=== PATIENT | female | born 1965 | race Caucasian/White ===

== ENCOUNTER 2017-05-19 10:16 | Emergency (ER) | payer MEDICAID ==
[~2017-05-19] VITALS: Ht 165.1 cm; Wt 74.8 kg
--- OUTSIDE RECORDS SUMMARY | 2017-05-19 10:23 | XMS REPORT ---
Author ALIYAH Galvez [facility] [place] eClinicalWorks Address Unknown Phone Unavailable Care Team Providers Care Dramatic Agent Name Role Phone ALIYAH MILTON CP Unavailable Allergies No Known Allergies Problems Problem Type Condition Code Onset Dates Condition Status Assessment Gastroesophageal reflux disease without esophagitis K21.9 Active Problem Oropharyngeal dysphagia R13.12 Active Problem Anxiety about health F41.8 Active Problem Bug bite, initial encounter W57.XXXA Active Problem Esophageal reflux 530.81 Active Problem DTAP TEST V06.1 Active Problem Mild persistent asthma without complication J45.30 Active Problem Gastroesophageal reflux disease without esophagitis K21.9 Active Medications No Known Medications Procedures Procedure Coding System Code Date VENIPUNCT, ROUTINE* CPT-4 65281 Dec 12, 2015 LAB NOT BILLED BY [facility] CPT-4 NOBLL Dec 12, 2015 Results Name Result Date Reference Range Unit Abnormality Flag CBC ----Lymphs 21 40459728 % ----Neutrophils 69 79136518 % ----Baso (Absolute) 0.1 [id number] 0.0-0.2 x10E3/uL ----Hemoglobin 13.2 87454545 11.1-15.9 g/dL ----Eos (Absolute) 0.1 44623419 0.0-0.4 x10E3/uL ----Hematocrit 40.3 10416057 34.0-46.6 % ----Monocytes(Absolute) 0.4 14761600 0.1-0.9 x10E3/uL ----MCV 83 55915943 79-97 fL ----Lymphs (Absolute) 1.2 10284750 0.7-3.1 x10E3/uL ----MCH 27.2 49516209 26.6-33.0 pg ----Neutrophils (Absolute) 4.1 45404233 1.4-7.0 x10E3/uL ----MCHC 32.8 32991099 31.5-35.7 g/dL ----Immature Granulocytes 1 91031508 % ----Basos 1 01342653 % ----RDW 19.1 38657879 12.3-15.4 % H ----Immature Grans (Abs) 0.0 20151212 0.0-0.1 x10E3/uL ----WBC 6.0 56123201 3.4-10.8 x10E3/uL ----Platelets 233 17759652 150-379 x10E3/uL ----Eos 1 24832679 % ----RBC 4.85 69258456 3.77-5.28 x10E6/uL ----Monocytes 7 95031426 % CMP ----Globulin, Total 2.5 33375656 1.5-4.5 g/dL ----eGFR If Africn Am 113 43946519 >59 mL/min/1.73 ----eGFR If NonAfricn Am 98 35823493 >59 mL/min/1.73 ----Albumin, Serum 4.5 56514521 3.5-5.5 g/dL ----Sodium, Serum 141 56343221 136-144 mmol/L ----Protein, Total, Serum 7.0 89211586 6.0-8.5 g/dL ----BUN/Creatinine Ratio 14 20151212 9-23 ----Calcium, Serum 9.3 09813030 8.7-10.2 mg/dL ----AST (SGOT) 11 20151212 0-40 IU/L ----Glucose, Serum 94 18595233 65-99 mg/dL ----Alkaline Phosphatase, S 74 20151212 39-117 IU/L ----Bilirubin, Total 0.4 20151212 0.0-1.2 mg/dL ----Creatinine, Serum 0.73 20151212 0.57-1.00 mg/dL ----A/G Ratio 1.8 20151212 1.1-2.5 ----BUN 10 20151212 6-24 mg/dL ----Carbon Dioxide, Total 22 20151212 18-29 mmol/L ----ALT (SGPT) 11 20151212 0-32 IU/L ----Potassium, Serum 4.2 20151212 3.5-5.2 mmol/L ----Chloride, Serum 100 20151212 97-106 mmol/L ROUTINE VENIPUNCTURE TSH ----TSH 1.420 20151212 0.450-4.500 uIU/mL Summary Purpose eClinicalWorks Submission
--- OUTSIDE RECORDS SUMMARY | 2017-05-19 10:23 | XMS REPORT ---
Author Author ALIYAH MILTON [facility] Address [address] [place] [address] Care Team Providers Care Cascara Bark Cutter Name Role Phone ALIYAH MILTON Unavailable PROBLEMS Type Condition ICD9-CM Code XYF09-WR Code Onset Dates Condition Status SNOMED Code Problem Mild persistent asthma without complication J45.30 Active 961126712 Problem Cyst of left breast N60.02 Active 49167506278214061 Problem Seasonal allergic rhinitis, unspecified allergic rhinitis trigger J30.2 Active 543918670 Problem Anxiety about health F41.8 Active 757959867 Problem Gastroesophageal reflux disease without esophagitis K21.9 Active 019387319 Problem Bug bite, initial encounter W57.XXXA Active 357737621 Problem Oropharyngeal dysphagia R13.12 Active 54742211 ALLERGIES Substance Reaction Event Type Date Status codiene nausea Drug Allergy Apr, Active SOCIAL HISTORY Never Assessed PLAN OF CARE Activity Details Follow Up prn Reason: VITAL SIGNS Height 66 in 2016-05-01 Weight 169.1 lbs 2016-05-01 Temperature 98.7 degrees Fahrenheit 2016-05-01 Heart Rate 90 bpm 2016-05-01 Respiratory Rate 18 2016-05-01 BMI 27.29 kg/m2 2016-05-01 Blood pressure systolic 110 mmHg 2016-05-01 Blood pressure diastolic 78 mmHg 2016-05-01 MEDICATIONS Medication Instructions Dosage Frequency Start Date End Date Duration Status Cetirizine HCl 10 mg Orally Once a day 1 tablet 24h Active ProAir HFA 108 (90 Base) MCG/ACT Inhalation PRN 2 puffs as needed Jan Active Fluticasone Propionate 50 MCG/ACT Nasally Once a day 1 spray in each nostril 24h Apr, Active Advair Diskus 100-50 MCG/DOSE Inhalation Twice a day 1 puff 12h 14 Jun, 2012 Active Ibuprofen 600 MG TAKE ONE TABLET EVERY 6 HOURS WITH FOOD NEEDED FOR PAIN 6 Active Triamcinolone Acetonide 0.1 % Externally Twice a day 1 application to affected area 12h 18 Apr, 2016 Active RESULTS No Results PROCEDURES Procedure Date Ordered Result Body Site SOLUMEDROL (UP TO 125 MG) May 01, 2016 THER/PROPH/DIAG INJ, SC/IM May 01, 2016 IMMUNIZATIONS Vaccine Route Administration Date Status SOLUMEDROL (UP TO 125 MG) IM Intramuscular May 01, 2016 Administered MEDICAL (GENERAL) HISTORY Type Description Date Medical History asthma Medical History gerd Medical History thyroid disorder goiter-multinodular - normal tsh 2009 Medical History anxiety Medical History grade 1 reflux esophagitis, gastic mass EGD 2014 Medical History helicobacter pylori 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 Guerin Surgical History tubal ligation Hospitalization History child
--- OUTSIDE RECORDS SUMMARY | 2017-05-19 10:24 | XMS REPORT ---
Author Author CAESAR MOLINA [facility] Address [address] [place] [address] Care Team Providers Care Cotton Ginner Helper Name Role Phone CAESAR MOLINA Unavailable PROBLEMS Type Condition ICD9-CM Code OZO25-OA Code Onset Dates Condition Status SNOMED Code Problem Gastroesophageal reflux disease without esophagitis K21.9 Active 095391986 Problem Oropharyngeal dysphagia R13.12 Active 91913353 Problem Anxiety about health F41.8 Active 406514560 Problem Mild persistent asthma without complication J45.30 Active 285634630 Problem Skin-picking disorder F42.4 Active 015826689 Problem Influenza vaccination declined Z28.21 Active 231350511 Problem Seasonal allergic rhinitis, unspecified allergic rhinitis trigger J30.2 Active 813782755 Problem Bug bite, initial encounter W57.XXXA Active 983940623 Problem Atopic dermatitis, unspecified type L20.9 Active 77620362 Problem Cyst of left breast N60.02 Active 33232649848049075 ALLERGIES No Information ENCOUNTERS Encounter Location Date Diagnosis [address] [id number] [id number] Apr, [address] [id number] [address] Apr, Screening cholesterol level Z13.220 ; Thyroid disorder screening Z13.29 ; Gastroesophageal reflux disease without esophagitis K21.9 and Mild persistent asthma without complication J45.[address] [id number][place] [address] Apr, Skin-picking disorder F42.4 and Viral upper respiratory tract infection J06.[address] [id number][place] [address] Feb, Mild persistent asthma without complication J45.30 ; Influenza vaccination declined Z28.21 and Atopic dermatitis, unspecified type L20.[address] [facility] [address] [id number] [place] [id number] 14 Jan, 2017 Encounter for dental examination and cleaning without abnormal findings Z01.[address] [facility] [address] [id number] [place] [id number] 14 Jan, 2017 Dental examination Z01.[address] [facility] [address] [id number] [place] [address] 12 Jan, 2017 Allergic dermatitis L23.[address] [facility] [address] [id number] [place] [address] 11 Jan, [address] [facility] [address] [id number] [place] [id number] Aug, [facility] [address] [id number] [place] [id number] Aug, [facility] [address] [id number], [place] [address] Jul, [facility] [address] [facility] [id number], [place] [address] Jul, [facility] [address] [address] [id number][place] [id number] Jul, [facility] [address] [id number] [id number] Jul, Cyst of left breast N60.[address] [facility] [address] [id number] [place] [id number] Jul, [facility] [address] [address] [id number] [place] [address] Jul, [facility] [address] [address] [id number] [place] [address] June, [facility] [address] [address] [id number] [place] [address] June, Colon cancer screening Z12.11 ; Gynecologic exam normal Z01.419 and Breast cancer screening Z12.[address] [facility] [address] [place] [address] AVE [id number] [address] Apr, Seasonal allergic rhinitis, unspecified allergic rhinitis trigger J30.2 and Gastroesophageal reflux disease without esophagitis K21.9 [facility] [address] [id number] [address] Apr, Seasonal allergic rhinitis, unspecified allergic rhinitis trigger J30.2 and Allergic contact dermatitis, unspecified trigger L23.9 [facility] [address] [id number] [address] Apr, Insect bites, initial encounter W57.XXXA [facility] [address] [id number] [place] [id number] Dec, Gastroesophageal reflux disease without esophagitis K21.9 [facility] [address] [id number] [address] Dec, Bug bite, initial encounter W57.XXXA [facility] [address] [id number] [id number] Oct, Oropharyngeal dysphagia R13.12 [facility] [address] [place] [address] AV [id number] [address] Jul, Plant dermatitis L25.5 and Itching L29.9 [facility] [address] [id number][place] [address] June, Plant allergic contact dermatitis L23.7 and Urticaria L50.9 [facility] [address] [id number], [place] [address] May, Oropharyngeal dysphagia R13.12 and Anxiety about health F41.8 [facility] [address] [place] [address] AV [id number][place] [id number] Mar, 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 [facility] [address] [place] [address] AV [id number] [address] Jan, Mild persistent asthma without complication J45.30 and Gastroesophageal reflux disease without esophagitis K21.9 [facility] [address] [facility] [address] [id number] [address] Jul, Abscess or cellulitis of toe 681.10 [facility] [address] [facility] [id number], [place] [address] 14 May, 2014 [facility] [address] [facility] [id number], [place] [address] May, [facility] [address] [facility] [id number], [place] [address] Mar, [facility] [address] [facility] [id number], [place] [address] Mar, [facility] [address] [id number], [place] [address] Feb, [facility] [address] [id number], [place] [address] Feb, [facility] [address] [facility] [id number], [place] [address] Jan, [facility] [address] [id number], [place] [address] Jan, [facility] [address] [id number], [place] [address] Jan, [facility] [address] [facility] [id number], [place] [address] Jan, [facility] [address] [facility] [id number], [place] [address] Dec, [facility] [address] [facility] [id number], [place] [address] Dec, [facility] [address] [facility] [id number], [place] [address] Nov, [facility] [address] [facility] [id number], [place] [address] Nov, [facility] [place] [facility] [address] [id number] [place] [address] Aug, 2013 [facility] [address] [id number] [place] [address] Aug, [facility] [place] [facility] [address] [id number] [place] [address] Aug, [facility] [address] [id number] [place] [address] Aug, [facility] [place] [facility] [address] [id number] [place] [address] Aug, [facility] [address] [id number] [place] [address] Aug, [facility] [address] [id number] [place] [address] May, [facility] [place] [facility] [address] [id number] [place] [address] May, [facility] [address] [id number] [place] [address] May, [facility] [place] [facility] [address] [id number] [place] [address] May, [facility] [address] [id number] [place] [address] May, [facility] [place] [facility] [address] [id number] [place] [address] May, [facility] [place] [facility] [address] [id number] [place] [address] May, [facility] [place] [facility] [address] [id number] [place] [address] May, [facility] [place] [facility] [address] [id number] [place] [address] May, [facility] [place] [facility] [address] [id number] [place] [address] May, [facility] [address] [id number] [place] [address] May, [facility] [address] [id number] [place] May, [facility] [address] [facility] [id number] [place] Apr, [facility] [address] [id number] [place] [address] Apr, [facility] [address] [id number] [place] [address] Apr, [facility] [address] [id number] [place] [address] Nov, [facility] [address] [facility] [id number] [place] [address] Nov, [facility] [address] [facility] [id number], [place] [address] Nov, [facility] [address] [facility] [id number], [place] [address] Nov, [facility] [address] [facility] [id number], [place] [address] Nov, [facility] [address] [facility] [id number], [place] [address] Nov, [facility] [address] [facility] [id number], [place] [address] Oct, [facility] [address] [facility] [id number], [place] [address] Jul, [facility] [address] [facility] [id number], [place] [address] Jul, [facility] [address] [facility] [id number][place] [address] June, IMMUNIZATIONS No Known Immunizations SOCIAL HISTORY Never Assessed REASON FOR VISIT mammo PLAN OF CARE VITAL SIGNS MEDICATIONS Unknown Medications RESULTS No Results PROCEDURES No Known procedures INSTRUCTIONS MEDICATIONS ADMINISTERED No Known Medications MEDICAL (GENERAL) HISTORY Type Description Date Medical [...]
--- OUTSIDE RECORDS SUMMARY | 2017-05-19 10:24 | XMS REPORT ---
Author Author Yan Nuñez [facility] Address [address] [facility] [address] [place], [place] [address] Care Team Providers Care Solar Installation Helper Name Role Phone Yan Nuñez PCP Unavailable Allergies and Adverse Reactions Name Reaction Notes No known history of drug allergy Plan of Treatment Not available. Medications Active Name Start Date Estimated Completion Date SIG Comments doxycycline hyclate 100 mg oral capsule 09/29/2016 10/09/2016 take 1 capsule ( 100 mg) by oral route every 12 hours for 10 days mupirocin 2 % topical ointment 09/29/2016 apply a small amount to the affected area by topical route 3 times per day Problem List Not available. Vital Signs Date Time BP-Sys(mm[Hg] BP-Xochilt(mm[Hg]) HR(bpm) RR(rpm) Temp WT HT HC BMI BSA BMI Percentile O2 Sat(%) 09/29/2016 7:10:00 PM 126 mmHg 78 mmHg 71 bpm 17 rpm 98.7 F 171.312 lbs 65.5 in 28.07 kg/m2 1.90 m2 98 % Social History Name Description Comments Tobacco Never smoker Alcohol Use - Rare History of Procedures Not available. Results Summary Not available. History Of Immunizations Not available. History of Past Illness Name Date of Onset Comments No significant medical history Impetigo Sep 29 2016 7:15PM Skin infection Sep 29 2016 7:15PM Payers Insurance Name Company Name Plan Name Plan Number Policy Number Policy Group Number Start Date [facility] Comm [id number] N/A History of Encounters Visit Date Visit Type Provider 09/29/2016 Office visit Yan Nuñez CMO
--- OUTSIDE RECORDS SUMMARY | 2017-05-19 10:24 | XMS REPORT | Continuity of Care Document ---
Author Author [facility] Organization [facility] Address [address] [place] [address] Phone Unavailable Care Team Providers Care Restaurant Mgr Name Role Phone JARRED WOODALL PCP Insurance Providers Guarantor Kayleigh Romero Address [address] [place] [address] Email NONE Payer [facility] Comm Plan Policy Number [id number] Subscriber's Name Kayleigh Romero Relationship 18 Self / Same As Patient Advance Directives Directive Response Recorded Date/Time Advance Directives No 12/02/14 1:57pm Advance Directive on File No 11/29/16 3:16am Durable POA for HC No 11/29/16 3:16am Power of Crown Presser No 11/29/16 3:16am Organ Donor No 11/29/16 3:16am Living Will No 11/29/16 3:16am Chief Complaint and Reason for Visit Chief Complaint Skin Rash/Abscess Reason for Visit [id number] Hyperventilation [id number] Problems Medical Problem Onset Date Status Abnormal uterine bleeding Unknown Acute Chest pain Unknown Acute Dermatitis Unknown Acute Gastroesophageal reflux Unknown Acute Impetigo Unknown Acute Urticaria Unknown Acute Xerosis of skin Unknown Acute Past Problems Medical Problem Onset Date Status Hyperventilation Unknown Acute Itchy skin Unknown Acute Medication side effects Unknown Acute Medications Current Home Medications Medication Dose Units Route Directions Days Qty Instructions Start Date Albuterol Sulfate (Ventolin Hfa Inhaler) 1 Puff Inhaler 2 Puff Inhalation Every Four Hours for Shortness Of Breath 30 Days Calcium Carbonate/Vitamin D3 (Calcium 600 + Vit D3 400 Tab) 600 Mg-400 Tablet 1 Each Oral Once A Day for Supplement Hydroxyzine Hcl (Atarax) 25 Mg Tablet 25 Mg Oral Three Times A Day as needed for Itching Loratadine/Pseudoephedrine (Claritin-D 24 Hour Tablet) 1 Each Tab.er.24h 1 Each Oral Once A Day for Allergies Pantoprazole Sodium (Protonix 40 Mg Tablet) 40 Mg Tablet.dr 40 Mg Oral Once A Day for Gerd Trimethoprim/Sulfamethoxazole (Bactrim Ds 800/160MG Tablet) 1 Tab Tablet 1 Each Oral Twice A Day 20 Tablet 08/12/16 Past Home Medications Medication Directions Ordered Status Hydroxyzine Hcl (Atarax) 25 Mg Tablet, 25 Mg Oral Every 6 To 8 Hours As Needed as needed for Anxiety 09/17/15 Discontinued Prednisone 10 Mg Tablet, 10 Mg Oral Once A Day 09/17/15 Discontinued Ranitidine Hcl (Zantac Tablet) 150 Mg Tablet, 150 Mg Oral Twice A Day Discontinued Ranitidine Hcl 150 Mg Tablet, 150 Mg Oral Twice A Day 09/17/15 Discontinued Social History Social History Problem Response Recorded Date/Time Onset Date Status Smoking Status Never smoker 11/29/2016 3:17am Not Applicable Not Applicable Smoked in the last 12 months? No 11/29/2016 3:17am Not Applicable Not Applicable Do you dip or chew tobacco? No 11/29/2016 3:17am Not Applicable Not Applicable Approx how many cigs per day? 0 11/29/2016 3:17am Not Applicable Not Applicable Level of Dependence Low 11/29/2016 3:17am Not Applicable Not Applicable Former smoker, last day smoked? 0 11/29/2016 3:17am Not Applicable Not Applicable Smoking Status Start Date Stop Date Never smoker Hospital Discharge Instructions No hospital discharge instruction information available. Plan of Care Discharge Date 11/29/16 3:50am Disposition 01 D/C HOME Condition at Discharge Stable and Improved Instructions/Education Provided Acute Rash (GEN) Forms Provided ER Discharge Phone Call Check Prescriptions See Medication Section Referrals JARRED WOODALL DO Address: [address] [place] [id number] Additional Instructions/Education Injections were given in the ER. Follow up with Dr. Woodall as directed. Benadryl can cause dry mouth and cause weird feelings. Continue treatment for rash and itching as directed. Reference Links Functional Status Query Response Date Recorded Activities of Daily Living Performs w/o Assistance November 29, 2016 3:21am Cognitive Function Intact November 29, 2016 3:21am Allergies, Adverse Reactions, Alerts Allergen Type Severity Reaction Status Last Updated Codeine Adverse Reaction Intermediate Active 12/02/14 Immunizations Query Response on File Recorded Date/Time Hx Influenza Vaccination No 11/29/16 2:30am Hx Pneumococcal Vaccination No 11/29/16 2:30am Hx Tetanus, Diphtheria Vaccination No 11/29/16 2:30am Vital Signs Acute Vital Signs Vital Response Date/Time Temperature (Fahrenheit) 97.5 degrees F (97.6 - 99.5) 11/29/2016 3:47am Temperature (Calculated Celsius) 36.08722 degrees C (36.4 - 37.5) 11/29/2016 3:47am Temperature Source Temporal Artery Scan 11/29/2016 3:47am Pulse Pulse Ox Pulse Rate (adult) 72 beats per minute (60 - 90) 11/29/2016 3:47am Pulse Location Modifier Right 11/29/2016 3:47am Oxygen Saturation Respiratory Rate 16 breaths per minute (12 - 24) 11/29/2016 3:47am O2 Sat by Pulse Oximetry 99 % (90 - 100) 11/29/2016 3:47am Blood Pressure 140/70 mm Hg 11/29/2016 3:47am Blood Pressure Mean 93 mm Hg 11/29/2016 3:47am Height 5 ft 5 in 11/29/2016 3:17am Weight 140 lb 11/29/2016 3:17am Body Mass Index 23.3 kg/m^2 11/29/2016 3:17am Results Laboratory Results Test Name Result Units Flags Reference Collection Date/Time Result Date/ Time Comments White Blood Count 8.2 x10^3/uL 4.0-11.0 05/18/2016 1:05pm 05/18/2016 1: 39pm Red Blood Count 4.45 10^6/uL 3.80-5.80 05/18/2016 1:05pm 05/18/2016 1: 39pm Hematocrit 37.6 % 37.0-47.0 05/18/2016 1:05pm 05/18/2016 1:39pm Mean Corpuscular Volume 85 fl 76-96 05/18/2016 1:05pm 05/18/2016 1: 39pm Mean Corpuscular Hemoglobin 29.9 pg 27.0-32.0 05/18/2016 1:05pm 2016 1:39pm Mean Corpuscular Hemoglobin Concent 35.4 g/dl H 31.0-35.0 05/18/2016 1: 05pm 05/18/2016 1:39pm Red Cell Distribution Width 14.0 % 11.0-16.0 05/18/2016 1:05pm 2016 1:39pm Platelet Count 195 10^3/uL 150-500 05/18/2016 1:05pm 05/18/2016 1:39pm Mean Platelet Volume 9.4 fl 6.0-10.0 05/18/2016 1:05pm 05/18/2016 1: 39pm Neutrophils (%) (Auto) 69.0 % 45.0-70.0 05/18/2016 1:05pm 05/18/2016 1: 39pm Lymphocytes (%) (Auto) 21.4 % 20.0-40.0 05/18/2016 1:05pm 05/18/2016 1: 39pm Monocytes (%) (Auto) 7.5 % 3.0-10.0 05/18/2016 1:05pm 05/18/2016 1: 39pm Eosinophils (%) (Auto) 1.6 % 1.0-5.0 05/18/2016 1:05pm 05/18/2016 1: 39pm Basophils (%) (Auto) 0.5 % 0.0-0.5 05/18/2016 1:05pm 05/18/2016 1:39pm Neutrophils # (Auto) 5.63 x10^3/uL 2.00-7.50 05/18/2016 1:05pm 2016 1:39pm Lymphocytes # (Auto) 1.75 x10^3/uL 1.50-4.00 05/18/2016 1:05pm 2016 1:39pm Monocytes # (Auto) 0.61 x10^3/uL 0.20-0.80 05/18/2016 1:05pm 2016 1:39pm Eosinophils # (Auto) 0.13 x10^3/uL 0.04-0.40 05/18/2016 1:05pm 2016 1:39pm Basophils # (Auto) 0.04 x10^3/uL 0.02-0.10 05/18/2016 1:05pm 2016 1:39pm Volume Urine Centrifuged 12 ml 05/18/2016 1:05pm 05/18/2016 1:52pm Test based ON 12 ml volume. Urine Color PINK STRAW 05/18/2016 1:05pm 05/18/2016 1:52pm Urine Clarity CLEAR CLEAR 05/18/2016 1:05pm 05/18/2016 1:52pm Urine Specific Roper 1.010 1.010-1.020 05/18/2016 1:05pm 2016 1:52pm Urine pH 6.5 A 5.0-6.0 05/18/2016 1:05pm 05/18/2016 1:52pm Urine Leukocyte Esterase NEGATIVE NEGATIVE 05/18/2016 1:05pm 2016 1:52pm Urine Nitrite NEGATIVE NEGATIVE 05/18/2016 1:05pm 05/18/2016 1:52pm Urine Protein 30 NEGATIVE 05/18/2016 1:05pm 05/18/2016 1:52pm Urine Glucose (UA) NEGATIVE NEGATIVE 05/18/2016 1:05pm 05/18/2016 1: 52pm Urine Ketones NEGATIVE NEGATIVE 05/18/2016 1:05pm 05/18/2016 1:52pm Urine Urobilinogen 0.2 0.2-1.0 05/18/2016 1:05pm 05/18/2016 1:52pm Urine Bilirubin NEGATIVE NEGATIVE 05/18/2016 1:05pm 05/18/2016 1: 52pm Urine Occult Blood LARGE NEGATIVE 05/18/2016 1:05pm 05/18/2016 1: 52pm Urine WBC NONE #/HPF OCCASIONAL 05/18/2016 1:05pm 05/18/2016 1:52pm Urine RBC 15-20 #/HPF OCCASIONAL 05/18/2016 1:05pm 05/18/2016 1:52pm Urine Epithelial Cells NONE #/HPF OCCASIONAL 05/18/2016 1:05pm 2016 1:52pm Urine Other Casts NONE #/LPF NEGATIVE 05/18/2016 1:05/18/2016 1: 52pm Urine Bacteria NONE NONE 05/18/2016 1:05pm 05/18/2016 1:52pm Urine Other Crystals NONE NONE 05/18/2016 1:05pm 05/18/2016 1:52pm Urine Mucus NONE NONE 05/18/2016 1:05pm 05/18/2016 1:52pm Urine Culture Indicated NO NO 05/18/2016 1:pm 05/18/2016 1:52pm Sodium Level 141 mmol/L 137-145 05/18/2016 1:pm 05/18/2016 2:02pm Potassium Level 3.5 mmol/L 3.5-5.1 05/18/2016 1:05pm 05/18/2016 2:02pm Carbon Dioxide Level 22.8 mmol/L 22-30 05/18/2016 1:pm 05/18/2016 2: 02pm Anion Gap 16.7 mEq/L H 8-16 05/18/2016 1:pm 05/18/2016 2:02pm Blood Urea Nitrogen 11 mg/dL 7-17 05/18/2016 1:pm 05/18/2016 2:02pm Creatinine 0.73 mg/dl 0.52-1.04 05/18/2016 1:05pm 05/18/2016 2:02pm Est Glomerular Filtrat Rate mL/min 85.09 05/18/2016 1:2016 2:01pm GFR NORMALS: Stage I: GFR >90 Stage II GFR 60-89 Stage III GFR 30-60 Stage IV: GFR 15-29 Stage V: GFR <15 BUN/Creatinine Ratio 15.06 05/18/2016 1:05/18/2016 2:02pm Glucose Level 103 mg/dL 74-106 05/18/2016 1:pm 05/18/2016 2:02pm Calculated Osmolality 290.9 mosm/kg 273-304 05/18/2016 1:pm 2016 2:02pm Calcium Level 8.7 mg/dL 8.4-10.2 05/18/2016 1:05pm 05/18/2016 2:02pm Total Bilirubin 0.3 mg/dL 0.2-1.3 05/18/2016 1:05pm 05/18/2016 2:02pm Aspartate Amino Transf (AST/SGOT) 14 U/L 14-36 05/18/2016 1:05pm 2016 2:02pm Alanine Aminotransferase (ALT/SGPT) 24 U/L 9-52 05/18/2016 1:05pm 05/18 2:02pm Alkaline Phosphatase 88 U/L 38-126 05/18/2016 1:05pm 05/18/2016 2:02pm Total Creatine Kinase 75 U/L 30-135 05/18/2016 1:05pm 05/18/2016 2: 02pm Troponin < 0.05 mg/mL 0-0.056 05/18/2016 1:05pm 05/18/2016 2:02pm Creatine Kinase MB 0.4 ng/mL 0-3.6 05/18/2016 1:05pm 05/18/2016 2:02pm Total Protein 7.7 g/dL 6.4-8.4 05/18/2016 1:05pm 05/18/2016 2:02pm Albumin 3.7 g/dL 3.4-5.5 05/18/2016 1:05pm 05/18/2016 2:02pm Globulin 4.0 H 2.3-3.5 05/18/2016 1:05pm 05/18/2016 2:02pm Albumin/Globulin Ratio 0.925 05/18/2016 1:05pm 05/18/2016 2:02pm Procedures Procedure Status Date Provider(s) ROUTINE VENIPUNCTURE Completed 05/18/16 COMPREHEN METABOLIC PANEL Completed 05/18/16 URINALYSIS NONAUTO W/SCOPE Completed 05/18/16 ASSAY OF CK (CPK) Completed 05/18/16 CREATINE MB FRACTION Completed 05/18/16 ASSAY OF TROPONIN QUAL Completed 05/18/16 CHORIONIC GONADOTROPIN ASSAY Completed 05/18/16 COMPLETE CBC W/AUTO DIFF WBC Completed 05/18/16 ELECTROCARDIOGRAM TRACING Completed 05/18/16 EMERGENCY DEPT VISIT Completed 05/18/16 EMERGENCY DEPT VISIT Completed 05/18/16 ELECTROCARDIOGRAM REPORT Completed 05/18/16 EMERGENCY DEPT VISIT Completed 08/12/16 EMERGENCY DEPT VISIT Completed 08/12/16 Insertion of intravenous saline lock Active 05/18/16 AMBAR DIAZ APRN Cardiac event monitoring Active 05/18/16 AMBAR DIAZ APRN 12-lead electrocardiogram Completed 05/18/16 AMBAR DIAZ APRN Encounters Encounter Location Arrival/Admit Date Discharge/Depart Date Attending Provider Departed Emergency Room [facility] 11/29/16 2:05am 11/29/16 3: 50am LESLIE VILLEGAS NP Departed Emergency Room [facility] 08/12/16 10:45pm 08/12/16 11: 25pm RANDY HOPKINS PA-C Departed Emergency Room [facility] 05/18/16 12:57pm 05/18/16 3: 35pm AMBAR DIAZ APRN Recent Diagnosis
--- OUTSIDE RECORDS SUMMARY | 2017-05-19 10:25 | XMS REPORT ---
Author Author CAESAR MOLINA Organization [facility] Address [address] [place] [address] Care Team Providers Care Public Affairs Manager Name Role Phone CAESAR MOLINA Unavailable PROBLEMS Type Condition ICD9-CM Code ODW16-OE Code Onset Dates Condition Status SNOMED Code Problem Mild persistent asthma without complication J45.30 Active 776687046 Problem Cyst of left breast N60.02 Active 84882385178088985 Problem Seasonal allergic rhinitis, unspecified allergic rhinitis trigger J30.2 Active 546123572 Problem Anxiety about health F41.8 Active 129792072 Problem Gastroesophageal reflux disease without esophagitis K21.9 Active 352172497 Problem Bug bite, initial encounter W57.XXXA Active 733265500 Problem Oropharyngeal dysphagia R13.12 Active 06824403 ALLERGIES No Information SOCIAL HISTORY Never Assessed PLAN OF CARE VITAL SIGNS MEDICATIONS Unknown Medications RESULTS No Results PROCEDURES No Known procedures IMMUNIZATIONS No Known Immunizations MEDICAL (GENERAL) HISTORY Type Description Date Medical [...]
--- OUTSIDE RECORDS SUMMARY | 2017-05-19 10:25 | XMS REPORT | Continuity of Care Document ---
Author Author [facility] Organization [facility] Address [address] [place] [address] Phone Unavailable Care Team Providers Care Quality Improvement Manager Name Role Phone ARELIS ACOSTA MD PCP Insurance Providers Payer Name Policy Number Subscriber Name Relationship [facility] Comm Plan [id number] Kayleigh Romero 20 Self / Same As Patient Advance Directives Directive Response Recorded Date/Time Advance Directives No 12/02/14 1:57pm Advance Directive on File No 09/17/15 4:58pm Durable POA for HC No 09/17/15 4:58pm Power of Environmental Attorney No 09/17/15 4:58pm Organ Donor No 09/17/15 4:58pm Living Will No 09/17/15 4:58pm Chief Complaint and Reason for Visit Chief Complaint Skin Rash/Abscess Reason for Visit Dermatitis Problems Active Problems Medical Problem Onset Date Status Dermatitis Unknown Acute Urticaria Unknown Acute Medications Current Home Medications Medication Dose Units Route Directions Days/Qty Instructions Start Date Salmeterol Xinafoate/Fluticasone 1 Each 1 Each Inhalation Once A Day for Asthma 12/02/14 Loratadine/Pseudoephedrine 1 Each 1 Each Oral Once A Day for Allergies 12/02/14 [Acid Receiver Stocker] Unknown Dose Oral Before Meals for Gerd 12/02/14 Hydroxyzine Hcl 25 Mg 25 Mg Oral Every 6 To 8 Hours As Needed as needed for Anxiety 30 09/17/15 Prednisone 10 Mg 10 Mg Oral Once A Day 3 09/17/15 Ranitidine Hcl 150 Mg 150 Mg Oral Twice A Day 60 09/17/15 Social History Social History Problem Response Recorded Date/Time Alcohol Use none 09/17/2015 5:57pm Drug Use none 09/17/2015 5:57pm Smoking Status Never smoker 09/17/2015 5:00pm Smoked in the last 12 months? No 09/17/2015 5:00pm Do you dip or chew tobacco? No 09/17/2015 5:00pm Approx how many cigs per day? 0 09/17/2015 5:00pm Level of Dependence Low 09/17/2015 5:00pm Former smoker, last day smoked? never 09/17/2015 5:00pm Query Response Start Date Stop Date Smoking Status Never smoker Hospital Discharge Instructions No hospital discharge instructions. Plan of Care Discharge Date 09/17/15 6:04pm Disposition 01 D/C HOME Condition at Discharge Stable and Improved Instructions/Education Provided Acute Rash (GEN) Prescriptions See Medication Section Referrals ARELIS ACOSTA MD - Additional Instructions/Education injection given today in ER-you will need to fill prescriptions provided and continue with the treatment as discussed. You will take the predisone 10mg daily for the next three days. Make sure that you eat with this as it may cause stomach upset if taken on empty stomach Hot showers or baths will make the itching much worse-apply cool compresses Begin taking zantac (ranitidine) twice daily as this is a second form of histamine ruben. Continue with your daily allergy medication Take the medication provided if needed for itching. continue to look for possible causes of the rash or things that you may have been exposed to The hydroxizine 1 or 2 tablets every 6-8 hours as needed for itching Functional Status Query Response Date Recorded Activities of Daily Living Performs w/o Assistance December 02, 2014 2:49pm Allergies, Adverse Reactions, Alerts Allergen Type Severity Reaction Status Last Updated Codeine Adverse Reaction Intermediate Active 12/02/14 Immunizations No immunization records. Vital Signs Acute Vital Signs Vital Response Date/Time Temperature (Fahrenheit) 98.0 degrees F (97.6 - 99.5) 09/17/2015 6:05pm Temperature (Calculated Celsius) 36.98930 degrees C (36.4 - 37.5) 09/17/2015 6:05pm Temperature Source Temporal Artery Scan 09/17/2015 6:05pm Pulse Pulse Ox Pulse Rate (adult) 70 beats per minute (60 - 90) 09/17/2015 6:05pm Pulse Location Modifier Left 09/17/2015 6:05pm Oxygen Saturation Respiratory Rate 16 breaths per minute (12 - 24) 09/17/2015 6:05pm O2 Sat by Pulse Oximetry 100 % (90 - 100) 09/17/2015 6:05pm Blood Pressure 113/68 mm Hg 09/17/2015 6:05pm Blood Pressure Mean 83 mm Hg 09/17/2015 6:05pm Height 5 ft 6 in Weight 0 lb Body Mass Index 0.0 kg/m^2 Results No known relevant diagnostic tests, laboratory data and/or discharge summary. Procedures Procedure Status Date Provider(s) EMERGENCY DEPT VISIT Completed 12/02/14 Encounters Encounter Location Arrival/Admit Date Discharge/Depart Date Attending Provider Departed Emergency Room [facility] 09/17/15 4:55pm 09/17/15 6: 04pm FAIZA MCGINNIS APRN Departed Emergency Room [facility] 12/02/14 1:53pm 12/02/14 3: 17pm LESLIE VILLEGAS NP Recent Diagnosis
--- OUTSIDE RECORDS SUMMARY | 2017-05-19 10:25 | XMS REPORT ---
Author Author DARIUSZ LOCK [facility] Address [address] [place] [address] Care Team Providers Care Heel Cover Softener Name Role Phone DARIUSZ LOCK Unavailable PROBLEMS Type Condition ICD9-CM Code HYR31-IC Code Onset Dates Condition Status SNOMED Code Assessment Oropharyngeal dysphagia R13.12 Oct, Active 68186392 Problem Oropharyngeal dysphagia R13.12 Active 51640646 Problem Anxiety about health F41.8 Active 872796963 Problem Esophageal reflux 530.81 Active 129991331 Problem DTAP TEST V06.1 Active Problem Mild persistent asthma without complication J45.30 Active 539621374 Problem Gastroesophageal reflux disease without esophagitis K21.9 Active 075395000 ALLERGIES Substance Reaction Event Type Date Status codiene nausea Drug Allergy Oct, Active SOCIAL HISTORY No smoking Hx information available PLAN OF CARE VITAL SIGNS Height 66 in 2015-11-02 Weight 162.1 lbs 2015-11-02 Heart Rate 80 bpm 2015-11-02 Respiratory Rate 16 2015-11-02 BMI 26.16 kg/m2 2015-11-02 Blood pressure systolic 108 mmHg 2015-11-02 Blood pressure diastolic 70 mmHg 2015-11-02 MEDICATIONS Medication Instructions Dosage Frequency Start Date End Date Duration Status Ibuprofen 600 MG TAKE ONE TABLET EVERY 6 HOURS WITH FOOD NEEDED FOR PAIN 6 Active Tums 200 mg calcium (500 mg) 1 Tablet by Oral route every 6 hours PRN heartburn May, Active Rolaids 550-110 MG Orally Six times a day 2 tablets as needed 4h Active Erythromycin 333 MG Active Medrol 4 MG Orally Once a day take each days dose at the same time 24h Jul, Active Claritin 10 mg 1 tablet by Oral route 1 time per day Nov, Active ProAir HFA 108 (90 Base) MCG/ACT Inhalation PRN 2 puffs as needed Jan Active Hydrocodone-Acetaminophen 5-300 mg take 1 tablet by Oral route every 6 hours as needed for pain PRN pain, take with food Dec, Active Hydrocortisone 0.5 % apply Externally Twice a day 1 application to affected area 12h Active Cetirizine HCl 10 mg Orally Once a day 1 tablet 24h Active Advair Diskus 100-50 MCG/DOSE Inhalation Twice a day 1 puff 12h June, Active Simethicone 80 mg 1-2 Tablet by Oral route 3 times per day PRN Nov, Active Pantoprazole Sodium 40 MG Orally Once a day 1 tablet 24h 15 Jan, 2015 Active Tretinoin 0.025 % Externally Once a day 1 application to affected area in the evening to face 24h Mar, Active RESULTS No Results PROCEDURES Procedure Date Ordered Related Diagnosis Body Site Office Visit, Est Pt., Level 3 Nov 02, 2015 IMMUNIZATIONS No Known Immunizations
--- OUTSIDE RECORDS SUMMARY | 2017-05-19 10:25 | XMS REPORT ---
Author Author CAESAR MOLINA Organization [facility] Address [address] [place] [address] Care Team Providers Care Customer Service Technician Name Role Phone CAESAR MOLINA Unavailable PROBLEMS Type Condition ICD9-CM Code MZY46-AI Code Onset Dates Condition Status SNOMED Code Problem Mild persistent asthma without complication J45.30 Active 523793545 Problem Cyst of left breast N60.02 Active 54216967405987970 Problem Seasonal allergic rhinitis, unspecified allergic rhinitis trigger J30.2 Active 643688367 Problem Anxiety about health F41.8 Active 595486830 Problem Gastroesophageal reflux disease without esophagitis K21.9 Active 431791604 Problem Bug bite, initial encounter W57.XXXA Active 829496290 Problem Oropharyngeal dysphagia R13.12 Active 78054989 ALLERGIES Substance Reaction Event Type Date Status codiene nausea Drug Allergy June, Active SOCIAL HISTORY Never Assessed PLAN OF CARE Activity Details Follow Up 1 Year Reason:WW exam VITAL SIGNS Height 66 in 2016-07-03 Weight 166.7 lbs 2016-07-03 Temperature 97.3 degrees Fahrenheit 2016-07-03 Heart Rate 84 bpm 2016-07-03 Respiratory Rate 18 2016-07-03 BMI 26.90 kg/m2 2016-07-03 Blood pressure systolic 102 mmHg 2016-07-03 Blood pressure diastolic 74 mmHg 2016-07-03 MEDICATIONS Medication Instructions Dosage Frequency Start Date End Date Duration Status Pantoprazole Sodium 40 mg Orally Once a day 1 tablet 24h Jan, 0 days Active Fluticasone Propionate 50 MCG/ACT Nasally Once a day 1 spray in each nostril 24h Apr, 0 days Active Advair Diskus 100-50 MCG/DOSE Inhalation Twice a day 1 puff 12h June, Active ProAir HFA 108 (90 Base) MCG/ACT Inhalation PRN 2 puffs as needed Jan Active Triamcinolone Acetonide 0.1 % Externally Twice a day 1 application to affected area 12h 18 Apr, 2016 Active RESULTS Name Result Date Reference Range GC/CHLAMYDIA (SWAB OR URINE)-RAPID 2016-07-03 Chlamydia trachomatis, FLACO Negative Negative Neisseria gonorrhoeae, FLACO Negative Negative CBC 2016-07-03 WBC 5.9 3.4-10.8 RBC 4.28 3.77-5.28 Hemoglobin 11.9 11.1-15.9 Hematocrit 35.8 34.0-46.6 MCV 84 79-97 MCH 27.8 26.6-33.0 MCHC 33.2 31.5-35.7 RDW 13.2 12.3-15.4 Platelets 261 150-379 Neutrophils 69 Lymphs 23 Monocytes 6 Eos 1 Basos 1 Neutrophils (Absolute) 4.1 1.4-7.0 Lymphs (Absolute) 1.3 0.7-3.1 Monocytes(Absolute) 0.4 0.1-0.9 Eos (Absolute) 0.1 0.0-0.4 Baso (Absolute) 0.0 0.0-0.2 Immature Granulocytes 0 Immature Grans (Abs) 0.0 0.0-0.1 PAP TEST W/ HPV REGARDLESS 2016-07-03 DIAGNOSIS: Specimen adequacy: Clinician provided ICD10: Performed by: QC reviewed by: . . Note: HPV, high-risk Negative Negative HEMOCCULT (IN HOUSE) 2016-07-03 RESULTS NEGATIVE Control POSITIVE Lot # [id number] Exp date 10/27 PDF Report 2016-07-03 PDF Report1 LCLS Mammogram, Bilateral Screening 2016-07-09 PROCEDURES Procedure Date Ordered Result Body Site ROUTINE VENIPUNCTURE 2016-07-03 N/A SPECIMEN HANDLING July 03, 2016 LAB NOT BILLED BY [facility] July 03, 2016 TEST FOR BLOOD, FECES July 03, 2016 IMMUNIZATIONS No Known Immunizations MEDICAL (GENERAL) HISTORY [...]
--- OUTSIDE RECORDS SUMMARY | 2017-05-19 10:25 | XMS REPORT ---
Author Author ALIYAH MILTON [facility] Address [address] [place] [address] Care Team Providers Care Casino Duty Manager Name Role Phone ALIYAH MILTON Unavailable PROBLEMS Type Condition ICD9-CM Code WLP65-DY Code Onset Dates Condition Status SNOMED Code Problem Gastroesophageal reflux disease without esophagitis K21.9 Active 111365013 Problem Oropharyngeal dysphagia R13.12 Active 11205447 Problem Anxiety about health F41.8 Active 931467886 Problem Mild persistent asthma without complication J45.30 Active 024379847 Problem Skin-picking disorder F42.4 Active 391336125 Problem Influenza vaccination declined Z28.21 Active 672850147 Problem Seasonal allergic rhinitis, unspecified allergic rhinitis trigger J30.2 Active 209423985 Problem Bug bite, initial encounter W57.XXXA Active 337807539 Problem Atopic dermatitis, unspecified type L20.9 Active 66411376 Problem Cyst of left breast N60.02 Active [id number] ALLERGIES No Information ENCOUNTERS Encounter Location Date Diagnosis [address] [id number] [id number] 16 Apr, 2017 Skin-picking disorder F42.4 and Viral upper respiratory tract infection J06.[address] [id number], [place] [id number] 09 Feb, 2017 Mild persistent asthma without complication J45.30 ; Influenza vaccination declined Z28.21 and Atopic dermatitis, unspecified type L20.[address] [id number][place] [id number] 14 Jan, 2017 Encounter for dental examination and cleaning without abnormal findings Z01.[address] [id number][place] [id number] 14 Jan, 2017 Dental examination Z01.[address] [facility] [address] [id number] [place] [id number] Jan, Allergic dermatitis L23.9 [facility] [address] [id number] [place] [id number] Jan, [facility] [address] [id number], [place] [id number] Aug, [facility] [address] [id number][place] [id number] Aug, [facility] [address] [facility] [id number], [place] [address] Jul, [facility] [address] [facility] [id number], [place] [address] Jul, [facility] [address] [id number][place] [id number] Jul, [facility] [address] [id number][place] [id number] Jul, Cyst of left breast N60.02 [facility] [address] [id number][place] [id number] Jul, [facility] [address] [id number][place] [id number] Jul, [facility] [address] [id number][place] [id number] June, [facility] [address] [id number][place] [id number] June, Colon cancer screening Z12.11 ; Gynecologic exam normal Z01.419 and Breast cancer screening Z12.[address] [facility] [address] [id number][place] [id number] Apr, Seasonal allergic rhinitis, unspecified allergic rhinitis trigger J30.2 and Gastroesophageal reflux disease without esophagitis K21.9 [facility] [address] [id number], [place] [id number] Apr, Seasonal allergic rhinitis, unspecified allergic rhinitis trigger J30.2 and Allergic contact dermatitis, unspecified trigger L23.9 [facility] [address] [id number], [place] [id number] Apr, Insect bites, initial encounter W57.XXXA [facility] [address] [place] [address] AVE [id number], [place] [id number] Dec, Gastroesophageal reflux disease without esophagitis K21.9 [facility] [address] [id number], [place] [id number] Dec, Bug bite, initial encounter W57.XXXA [facility] [address] [place] [address] [id number][place] [id number] Oct, Oropharyngeal dysphagia R13.12 [facility] [address] [place] [address] AVE [id number], [place] [id number] Jul, Plant dermatitis L25.5 and Itching L29.9 [facility] [address] [id number], [place] [id number] June, Plant allergic contact dermatitis L23.7 and Urticaria L50.[address] [id number], [place] [id number] May, Oropharyngeal dysphagia R13.12 and Anxiety about health F41.8 [facility] [address] [id number], [place] [id number] Mar, 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 [id number][place] [id number] Jan, Mild persistent asthma without complication J45.30 and Gastroesophageal reflux disease without esophagitis K21.[address] [id number], [place] [id number] Jul, Abscess or cellulitis of toe 681.10 [facility] [address] [id number], [place] [address] May, [facility] [address]00565100[place], [place] [address] May, [facility] [place] [facility] [address] [id number] [place] [address] Mar, [facility] [place] [facility] [address] [id number] [place] [address] Mar, [facility] [place] [facility] [address] [id number] [place] [address] Feb, [facility] [place] [facility] [address] [id number] [place] [address] Feb, [facility] [place] [facility] [address] [id number] [place] [address] Jan, [facility] [place] [facility] [address] [id number] [place] [address] Jan, [facility] [place] [facility] [address] [id number] [place] [address] Jan, [facility] [place] [facility] [address] [id number] [place] [address] Jan, [facility] [place] [facility] [address] [id number] [place] [address] Dec, [facility] [place] [facility] [address] [id number] [place] [address] Dec, [facility] [place] [facility] [address] [id number] [place] [address] Nov, [facility] [place] [facility] [address] [id number] [place] [address] Nov, [facility] [place] [facility] [address] [id number] [place] [address] Aug, [facility] [place] [facility] [address] [id number] [place] [address] Aug, [facility] [place] [facility] [address] [id number] [place] [address] Aug, [facility] [place] [facility] [address] [id number] [place] [address] 14 Aug, 2013 [facility] [address] [id number] [place] [address] Aug, [facility] [place] [facility] [address] [id number] [place] [address] Aug, [facility] [address] [id number] [place] [address] May, [facility] [place] [facility] [address] [id number] [place] [address] May, [facility] [address] [id number] [place] [address] May, [facility] [address] [id number] [place] [address] May, [facility] [place] [facility] [address] [id number] [place] [address] May, [facility] [address] [id number] [place] [address] May, [facility] [place] [facility] [address] [id number] [place] [address] May, [facility] [address] [id number] [place] [address] May, [facility] [place] [facility] [address] [id number] [place] [address] May, [facility] [place] [facility] [address] [id number] [place] [address] May, [facility] [place] [facility] [address] [id number] [place] [address] May, [facility] [place] [facility] [address] [id number] [place] [address] May, [facility] [place] [facility] [address] [id number] [place] [address] Apr, [facility] [address] [id number] [address] Apr, [facility] [address]00565100[place] [address] Apr, [facility] [address] [id number] [address] Nov, [facility] [address]00565100[place] [address] Nov, [facility] [address] [id number] [address] Nov, [facility] [address]00565100[place] [address] Nov, [facility] [address]00565100[place] [address] Nov, [facility] [address]00565100[place] [address] Nov, [facility] [address]00565100[place] [address] Oct, [facility] [address]00565100[place] [address] Jul, [facility] [address] [id number] [address] Jul, [facility] [address] [id number], [place] [address] June, IMMUNIZATIONS No Known Immunizations SOCIAL HISTORY Never Assessed [facility] V[facility]IT [facility] VITAL SIGNS MEDICATIONS No Known Medications RESULTS No Results PROCEDURES No Known [...]
--- OUTSIDE RECORDS SUMMARY | 2017-05-19 10:25 | XMS REPORT | Continuity of Care Document ---
Author Author [facility] Organization [facility] Address [address] [place] [address] Phone Unavailable Care Team Providers Care Nurse Assessor Name Role Phone JARRED WOODALL DO PCP Insurance Providers Payer Name Policy Number Subscriber Name Relationship [facility] Comm Plan [id number] Kayleigh Romero 18 Self / Same As Patient Advance Directives Directive Response Recorded Date/Time Advance Directives No 12/02/14 1:57pm Advance Directive on File No 05/18/16 1:02pm Durable POA for HC No 05/18/16 1:02pm Power of Washcoat Wiper No 05/18/16 1:02pm Organ Donor No 05/18/16 1:02pm Living Will No 05/18/16 1:02pm Chief Complaint and Reason for Visit Chief Complaint General Complaint Reason for Visit Gastroesophageal reflux Abnormal uterine bleeding Chest pain Problems Active Problems Medical Problem Onset Date Status Abnormal uterine bleeding Unknown Acute Chest pain Unknown Acute Dermatitis Unknown Acute Gastroesophageal reflux Unknown Acute Urticaria Unknown Acute Medications Current Home Medications Medication Dose Units Route Directions Days/Qty Instructions Start Date Salmeterol Xinafoate/Fluticasone 1 Each 1 Each Inhalation Once A Day for Asthma 12/02/14 Loratadine/Pseudoephedrine 1 Each 1 Each Oral Once A Day for Allergies 12/02/14 [Acid Knifeman] Unknown Dose Oral Before Meals for Gerd 12/02/14 Ranitidine Hcl 150 Mg 150 Mg Oral Twice A Day 60 04/09/17 Past Home Medications Medication Directions Ordered Status Hydroxyzine Hcl 25 Mg Tablet, 25 Mg Oral Every 6 To 8 Hours As Needed as needed for Anxiety 09/17/15 Discontinued Prednisone 10 Mg Tablet, 10 Mg Oral Once A Day 09/17/15 Discontinued Ranitidine Hcl 150 Mg Tablet, 150 Mg Oral Twice A Day 09/17/15 Discontinued Social History Social History Problem Response Recorded Date/Time Smoking Status Never smoker 05/18/2016 1:04pm Smoked in the last 12 months? No 05/18/2016 1:04pm Do you dip or chew tobacco? No 05/18/2016 1:04pm Approx how many cigs per day? 0 05/18/2016 1:04pm Level of Dependence Low 05/18/2016 1:04pm Former smoker, last day smoked? never 05/18/2016 1:04pm Query Response Start Date Stop Date Smoking Status Never smoker Hospital Discharge Instructions No hospital discharge instructions. Plan of Care Discharge Date 05/18/16 3:35pm Disposition 01 D/C HOME Condition at Discharge Stable and Improved Instructions/Education Provided Chest Pain (ED) Dysfunctional Uterine Bleeding (ED) Forms Provided ER Discharge Phone Call Check Prescriptions See Medication Section Referrals JARRED WOODALL DO - Additional Instructions/Education Follow up with primary care on Thursday. Take zantac two times a day. Follow up with MARKETING AND COMMUNICATIONS OFFICER as scheduled on the , call to reschedule it. Continue home medications, continue to take zantac as previously prescribed. Return if worsening symptoms. Reference Links abnormal bleeding Functional Status Query Response Date Recorded Activities of Daily Living Performs w/o Assistance May 18, 2016 1:04pm Cognitive Function Intact May 18, 2016 1:04pm Allergies, Adverse Reactions, Alerts Allergen Type Severity Reaction Status Last Updated Codeine Adverse Reaction Intermediate Active 12/02/14 Immunizations No immunization records. Vital Signs Acute Vital Signs Vital Response Date/Time Temperature (Fahrenheit) 99.2 degrees F (97.6 - 99.5) 05/18/2016 2:36pm Temperature (Calculated Celsius) 37.77341 degrees C (36.4 - 37.5) 05/18/2016 2:36pm Temperature Source Temporal Artery Scan 05/18/2016 2:36pm Pulse Pulse Ox Pulse Rate (adult) 63 beats per minute (60 - 90) 05/18/2016 3:30pm Pulse Location Modifier Left 05/18/2016 3:30pm Oxygen Saturation Respiratory Rate 18 breaths per minute (12 - 24) 05/18/2016 3:30pm O2 Sat by Pulse Oximetry 98 % (90 - 100) 05/18/2016 3:30pm Blood Pressure 136/80 mm Hg 05/18/2016 3:30pm Blood Pressure Mean 98 mm Hg 05/18/2016 3:30pm Height 5 ft 5 in Weight 170 lb Body Mass Index 28.3 kg/m^2 Results Pending Laboratory Results Test Name Collection Date/Time Procedures Procedure Status Date Provider(s) EMERGENCY DEPT VISIT Completed 09/17/15 Encounters Encounter Location Arrival/Admit Date Discharge/Depart Date Attending Provider Departed Emergency Room [facility] 05/18/16 12:57pm 05/18/16 3: 35pm AMBAR DIAZ APRN Departed Emergency Room [facility] 09/17/15 4:55pm 09/17/15 6: 04pm FAIZA MCGINNIS APRN Recent Diagnosis
--- OUTSIDE RECORDS SUMMARY | 2017-05-19 10:25 | XMS REPORT | Continuity of Care Document ---
Author Author [facility] Organization [facility] Address [address] [place] [address] Phone Unavailable Care Team Providers Care Remote Sensing Technician Name Role Phone JARRED WOODALL PCP Insurance Providers Payer Name Policy Number Subscriber Name Relationship [facility] Comm Plan [id number] Kayleigh Romero 18 Self / Same As Patient Advance Directives Directive Response Recorded Date/Time Advance Directives No 12/02/14 1:57pm Advance Directive on File No 08/12/16 10:45pm Durable POA for HC No 08/12/16 10:45pm Power of Desk Reporter No 08/12/16 10:45pm Organ Donor No 08/12/16 10:45pm Living Will No 08/12/16 10:45pm Chief Complaint and Reason for Visit Chief Complaint Skin Rash/Abscess Reason for Visit [id number] Impetigo Problems Active Problems Medical Problem Onset Date Status Abnormal uterine bleeding Unknown Acute Chest pain Unknown Acute Dermatitis Unknown Acute Gastroesophageal reflux Unknown Acute Impetigo Unknown Acute Urticaria Unknown Acute Xerosis of skin Unknown Acute Medications Current Home Medications Medication Dose Units Route Directions Days/Qty Instructions Start Date Salmeterol Xinafoate/Fluticasone 1 Each 1 Each Inhalation Once A Day for Asthma 12/02/14 Loratadine/Pseudoephedrine 1 Each 1 Each Oral Once A Day for Allergies 12/02/14 [Acid Shuttle Inspector] Unknown Dose Oral Before Meals for Gerd 12/02/14 Ranitidine Hcl 150 Mg 150 Mg Oral Twice A Day 60 05/18/16 Trimethoprim/Sulfamethoxazole 1 Tab 1 Each Oral Twice A Day 20 Past Home Medications Medication Directions Ordered Status [...] Response Recorded Date/Time Smoking Status Never smoker 08/12/2016 10:59pm Smoked in the last 12 months? No 08/12/2016 10:59pm Do you dip or chew tobacco? No 08/12/2016 10:59pm Approx how many cigs per day? 0 08/12/2016 10:59pm Level of Dependence Low 08/12/2016 10:59pm Former smoker, last day smoked? never 08/12/2016 10:59pm Query Response Start Date Stop Date Smoking Status Never smoker Hospital Discharge Instructions No hospital discharge instructions. Plan of Care Discharge Date 08/12/16 11:25pm Disposition 01 D/C HOME Condition at Discharge Stable Instructions/Education Provided Impetigo (ED) Dermatitis (ED) Forms Provided ER Discharge Phone Call Check Prescriptions See Medication Section Referrals JARRED WOODALL DO - Additional Instructions/Education Do not pick lesions Shower with antibacterial soap daily Use white bath towels and launder with bleach after each use Take antibiotic as directed until gone OTC benadryl or claritin for itch as needed To prevent dry skin, take lukewarm showers and pat dry Immediately (within 5 minutes) apply emollient cream such as eucerin or generic equivalent Follow up with your physician if symptoms persist Return to ED as needed Functional Status Query Response Date Recorded Activities of Daily Living Performs w/o Assistance August 12, 2016 11:03pm Cognitive Function Intact August 12, 2016 11:03pm Allergies, Adverse Reactions, Alerts Allergen Type Severity Reaction Status Last Updated Codeine Adverse Reaction Intermediate Active 12/02/14 Immunizations No immunization records. Vital Signs Acute Vital Signs Vital Response Date/Time Temperature (Fahrenheit) 98.6 degrees F (97.6 - 99.5) 08/12/2016 11:15pm Temperature (Calculated Celsius) 37.95220 degrees C (36.4 - 37.5) 08/12/2016 11:15pm Temperature Source Temporal Artery Scan 08/12/2016 11:15pm Pulse Pulse Ox Pulse Rate (adult) 70 beats per minute (60 - 90) 08/12/2016 11:15pm Pulse Location Modifier Left 05/18/2016 3:30pm Oxygen Saturation Respiratory Rate 20 breaths per minute (12 - 24) 08/12/2016 11:15pm O2 Sat by Pulse Oximetry 99 % (90 - 100) 08/12/2016 11:15pm Blood Pressure 160/81 mm Hg 08/12/2016 11:15pm Blood Pressure Mean 107 mm Hg 08/12/2016 11:15pm Height 5 ft 7 in Weight 185 lb Body Mass Index 29.0 kg/m^2 Results Laboratory Results Test Name Result Units [...] ml volume. Urine Color PINK STRAW 05/18/2016 1:pm 05/18/2016 1:52pm Urine Clarity CLEAR CLEAR 05/18/2016 1:05pm 05/18/2016 1:52pm Urine Specific [place] 1.010 1.010-1.020 05/18/2016 1:05pm 2016 1:52pm Urine [...] Urine Other Casts NONE #/LPF NEGATIVE 05/18/2016 1:05pm 05/18/2016 1: 52pm Urine Bacteria NONE NONE 05/18/2016 1:05pm 05/18/2016 1:52pm Urine Other Crystals NONE NONE 05/18/2016 1:05pm 05/18/2016 1:52pm Urine Mucus NONE NONE 05/18/2016 1:05pm 05/18/2016 1:52pm Urine Culture Indicated NO NO 05/18/2016 1:05pm 05/18/2016 1:52pm Sodium Level 141 mmol/L 137-145 05/18/2016 1:05pm 05/18/2016 2:02pm Potassium Level 3.5 mmol/L 3.5-5.1 05/18/2016 1:05pm 05/18/2016 2:02pm Carbon Dioxide Level 22.8 mmol/L 22-30 05/18/2016 1:05pm 05/18/2016 2: 02pm Anion Gap 16.7 mEq/L H 8-16 05/18/2016 1:05pm 05/18/2016 2:02pm Blood Urea Nitrogen 11 mg/dL 7-17 05/18/2016 1:pm 05/18/2016 2:02pm Creatinine 0.73 mg/dl 0.52-1.04 05/18/2016 1:05pm 05/18/2016 2:02pm Est Glomerular Filtrat Rate mL/min 85.09 05/18/2016 1:2016 2:01pm GFR NORMALS: Stage I: GFR >90 Stage II GFR 60-89 Stage III GFR 30-60 Stage IV: GFR 15-29 Stage V: GFR <15 BUN/Creatinine Ratio 15.06 05/18/2016 1:pm 05/18/2016 2:02pm Glucose Level 103 mg/dL 74-106 05/18/2016 1:pm 05/18/2016 2:02pm Calculated Osmolality 290.9 mosm/kg 273-304 05/18/2016 1:pm 2016 2:02pm Calcium Level 8.7 mg/dL 8.4-10.2 05/18/2016 1:05/18/2016 2:02pm Total Bilirubin 0.3 mg/dL 0.2-1.3 05/18/2016 1:pm 05/18/2016 2:02pm Aspartate Amino Transf (AST/SGOT) 14 U/L 14-36 05/18/2016 1:pm 2016 2:02pm Alanine Aminotransferase (ALT/SGPT) 24 U/L 9-52 05/18/2016 1:pm 05/18 2:02pm Alkaline Phosphatase 88 U/L 38-126 05/18/2016 1:pm 05/18/2016 2:02pm Total Creatine Kinase 75 U/L 30-135 05/18/2016 1:pm 05/18/2016 2: 02pm Troponin < 0.05 mg/mL 0-0.056 05/18/2016 1:pm 05/18/2016 2:02pm Creatine Kinase MB 0.4 ng/mL 0-3.6 05/18/2016 1:pm 05/18/2016 2:02pm Total Protein 7.7 g/dL 6.4-8.4 05/18/2016 1:pm 05/18/2016 2:02pm Albumin 3.7 g/dL 3.4-5.5 05/18/2016 [...] VISIT Completed 05/18/16 ELECTROCARDIOGRAM REPORT Completed 05/18/16 Encounters Encounter Location Arrival/Admit Date Discharge/Depart Date Attending Provider Departed Emergency Room [facility] 08/12/16 10:45pm 08/12/16 11: 25pm RANDY HOPKINS PA-C Departed Emergency Room [facility] 05/18/16 12:57pm 05/18/16 3: 35pm AMBAR DIAZ APRN Recent Diagnosis
--- OUTSIDE RECORDS SUMMARY | 2017-05-19 10:25 | XMS REPORT ---
Author Author DARIUSZ LOCK Organization [facility] Address [address] [place] [address] Care Team Providers Care Remote Medical Coder Name Role Phone DARIUSZ LOCK Unavailable PROBLEMS Type Condition ICD9-CM Code XNX32-VS Code Onset Dates Condition Status SNOMED Code Problem Gastroesophageal reflux disease without esophagitis K21.9 Active 815815662 Problem Oropharyngeal dysphagia R13.12 Active 94053238 Problem Anxiety about health F41.8 Active 256343741 Problem Mild persistent asthma without complication J45.30 Active 684766629 Problem Skin-picking disorder F42.4 Active 947611251 Problem Influenza vaccination declined Z28.21 Active 365041178 Problem Seasonal allergic rhinitis, unspecified allergic rhinitis trigger J30.2 Active 512872480 Problem Bug bite, initial encounter W57.XXXA Active 584861874 Problem Atopic dermatitis, unspecified type L20.9 Active 95777741 Problem Cyst of left breast N60.02 Active [id number] ALLERGIES No Information ENCOUNTERS Encounter Location Date Diagnosis [facility] [address] [id number] [id number] Apr, Screening cholesterol level Z13.220 ; Thyroid disorder screening Z13.29 ; Gastroesophageal reflux disease without esophagitis K21.9 and Mild persistent asthma without complication J45.30 [facility] [address] [id number][place] [id number] Apr, Skin-picking disorder F42.4 and Viral upper respiratory tract infection J06.9 [facility] [id number][place] [id number] Feb, Mild persistent asthma without complication J45.30 ; Influenza vaccination declined Z28.21 and Atopic dermatitis, unspecified type L20.[address] [facility] [address] [address] [id number][place] [id number] 14 Jan, 2017 Encounter for dental examination and cleaning without abnormal findings Z01.[address] [facility] [address] [address] [id number] [place] [id number] 14 Jan, 2017 Dental examination Z01.[address] [facility] [address] [address] [id number] [place] [id number] 12 Jan, 2017 Allergic dermatitis L23.[address] [facility] [address] [address] [id number] [place] [id number] Jan, [facility] [address] [id number] [place] [id number] Aug, [facility] [address] [id number][place] [id number] Aug, [facility] [address] [id number] [address] Jul, [facility] [address] [id number], [place] [address] Jul, [facility] [address] [id number][place] [id number] Jul, [facility] [address] [id number][place] [id number] Jul, Cyst of left breast N60.02 [facility] [address] [id number], [place] [id number] Jul, [facility] [address] [id number][place] [id number] Jul, [facility] [address] [id number] [place] [id number] June, [facility] [address] [id number], [place] [id number] June, Colon cancer screening Z12.11 ; Gynecologic exam normal Z01.419 and Breast cancer screening Z12.[address] [facility] [address] [id number] [place] [id number] Apr, Seasonal allergic rhinitis, unspecified allergic rhinitis trigger J30.2 and Gastroesophageal reflux disease without esophagitis K21.9 [facility] [address] [id number], [place] [id number] Apr, Seasonal allergic rhinitis, unspecified allergic rhinitis trigger J30.2 and Allergic contact dermatitis, unspecified trigger L23.9 [facility] [address] [place] [address] AVE [id number][place] [id number] Apr, Insect bites, initial encounter W57.XXXA [facility] [address] [place] [address] AVE [id number], [place] [id number] Dec, Gastroesophageal reflux disease without esophagitis K21.9 [facility] [address] [place] [address] AVE [id number], [place] [id number] Dec, Bug bite, initial encounter W57.XXXA [facility] [address] [place] [address] AV [id number], [place] [id number] Oct, Oropharyngeal dysphagia R13.12 [facility] [address] [place] [address] AVE [id number], [place] [id number] Jul, Plant dermatitis L25.5 and Itching L29.9 [facility] [address] [place] [address] AVE [id number], [place] [id number] June, Plant allergic contact dermatitis L23.7 and Urticaria L50.9 [facility] [address] [place] [address] AV [id number], [place] [id number] May, Oropharyngeal dysphagia R13.12 and Anxiety about health F41.8 [facility] [address] [id number], [place] [id number] Mar, 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 [facility] [address] [address] [id number], [place] [address] Jan, Mild persistent asthma without complication J45.30 and Gastroesophageal reflux disease without esophagitis K21.9 [facility] [address] [place] [address] AVE [id number], [place] [id number] Jul, Abscess or cellulitis of toe 681.10 [facility] [address] [id number] [place] [address] 14 May, 2014 [facility] [address] [facility] [id number], [place] [address] May, [facility] [address] [facility] [id number], [place] [address] Mar, [facility] [address] [facility] [id number] [place] [address] Mar, [facility] [address] [facility] [id number] [place] [address], [place] [address] Feb, [facility] [address] [facility] [id number], [place] [address] Feb, [facility] [address]00565100[place], [place] [address] Jan, [facility] [address] [facility] [id number], [place] [address] Jan, [facility] [id number], [place] [address] Jan, [facility] [id number], [place] [address] Jan, [facility] [address]00565100[place], [place] [address] Dec, [facility] [address] [facility] [id number] [address] Dec, [facility] [address] [id number], [place] [address] Nov, [facility] [address] [facility] [id number], [place] [address] Nov, [facility] [address] [id number], [place] [address] Aug, [facility] [place] [facility] [address] [id number] [place] [address] 31 Aug, 2013 [facility] [place] [facility] [address] [id number] [place] [address] Aug, [facility] [place] [facility] [address] [id number] [place] [address] Aug, [facility] [place] [facility] [address] [id number] [place] [address] Aug, [facility] [place] [facility] [address] [id number] [place] [address] Aug, [facility] [place] [facility] [address] [id number] [place] [address] May, [facility] [place] [facility] [address] [id number] [place] [address] May, [facility] [place] [facility] [address] [id number] [place] [address] May, [facility] [place] [facility] [address] [id number] [place] [address] 15 May, 2013 [facility] [place] [facility] [address] [id number] [place] [address] May, [facility] [place] [facility] [address] [id number] [place] [address] May, [facility] [place] [facility] [address] [id number] [place] [address] May, [facility] [place] [facility] [address] [id number] [place] [address] May, [facility] [place] [facility] [address] [id number] [place] [address] May, [facility] [place] [facility] [address] [id number] [place] [address] May, [facility] [place] [facility] [address] [id number] [place] [address] May, [facility] [address] [facility] [id number], [place] [address] May, [facility] [address] [facility] [id number], [place] [address] Apr, [facility] [address]00565100[place], [place] [address] Apr, [facility] [address] [facility] [id number] [address] Apr, [facility] [address] [facility] [id number], [place] [address] Nov, [facility] [address]00565100[place] [address] Nov, [facility] [id number] [address] Nov, [facility] [id number], [place] [address] Nov, [facility] [address]00565100[place], [place] [address] Nov, [facility] [address]00565100[place], [place] [address] Nov, [facility] [address]00565100[place], [place] [address] Oct, [facility] [address] [id number], [place] [address] Jul, [facility] [address] [id number], [place] [address] Jul, [facility] [address]65100[place], [place] [address] June, IMMUNIZATIONS No Known Immunizations SOCIAL HISTORY Never Assessed REASON FOR VISIT Refill request PLAN OF CARE VITAL SIGNS MEDICATIONS Unknown [...]
--- OUTSIDE RECORDS SUMMARY | 2017-05-19 10:26 | XMS REPORT ---
Author CAESAR Moser Organization [employer] Address Unknown Phone Unavailable Care Team Providers Care Advertisement Distributor Name Role Phone CAESAR MOLINA CP Unavailable Allergies, Adverse Reactions, Alerts Substance Reaction Event Type codiene nausea Drug Allergy Problems Problem Type Condition Code Onset Dates Condition Status Assessment Mild persistent asthma without complication J45.30 Active Assessment Gastroesophageal reflux disease without esophagitis K21.9 Active Problem Gastroesophageal reflux disease without esophagitis K21.9 Active Problem Dysphagia, unspecified 787.20 Active Problem Mild persistent asthma without complication J45.30 Active Problem Encounter for long-term (current) use of other medications V58.69 Active Problem DTAP TEST V06.1 Active Problem Excessive or frequent menstruation 626.2 Active Problem Esophageal reflux 530.81 Active Medications Medication Code System Code Instructions Start Date End Date Status Dosage ProAir HFA [facility] [address]-17 108 (90 Base) MCG/ACT Inhalation PRN Jan 23, 2015 2 puffs as needed Claritin [facility] [address]-54 10 mg Nov 14, 2013 1 tablet by Oral route 1 time per day Rolaids [facility] [address]-23 550-110 MG Orally Six times a day 2 tablets as needed Advair Diskus [facility] [address]-82 100-50 MCG/DOSE Inhalation Twice a day June 22, 2012 1 puff Pantoprazole Sodium [facility] [address]-91 40 MG Orally Once a day Jan 23, 2015 1 tablet Procedures Procedure Coding System Code Date Office Visit, Est Pt., Level 3 CPT-4 38260 Jan 23, 2015 Vital Signs Date/Time: Jan 23, 2015 Temperature 98.8 F Weight 155.6 lbs Height 66 in BMI 25.11 Index Blood Pressure Diastolic 70 mmHg Blood Pressure Systolic 106 mmHg Cardiac Monitoring Heart Rate 79 bpm Results No Known Results Summary Purpose [employer] Submission
--- OUTSIDE RECORDS SUMMARY | 2017-05-19 10:26 | XMS REPORT | Continuity of Care Document ---
Author Author [facility] Organization [facility] Address [address] [place] [address] Phone Unavailable Care Team Providers Care Legal Document Specialist Name Role Phone JARRED WOODALL PCP Insurance Providers Guarantor Kayleigh Romero Address [address] [place] [address] Email NONE Payer [facility] Plan Policy Number [id number] Subscriber's Name Kayleigh Romero Relationship 18 Self / Same As Patient Advance Directives Directive Response Recorded Date/Time Advance Directives No 12/02/14 1:57pm Advance Directive on File No 11/29/16 3:16am Durable POA for HC No 11/29/16 3:16am Power of Information Technology Teacher No 11/29/16 3:16am Organ Donor No 11/29/16 3:16am Living Will No 11/29/16 3:16am Chief Complaint and Reason for Visit Chief Complaint Skin Rash/Abscess Reason for Visit Dermatitis Problems Medical Problem Onset Date Status Abnormal [...] Times A Day as needed for Itching Hydroxyzine Hcl (Atarax) 25 Mg Tablet 25 Mg Oral Every Four Hours as needed for Itching 30 Tablet 12/13/16 Loratadine/Pseudoephedrine (Claritin-D 24 Hour Tablet) 1 Each Tab.er.24h 1 Each Oral Once A Day for Allergies Pantoprazole Sodium (Protonix 40 Mg Tablet) 40 Mg Tablet.dr 40 Mg Oral Once A Day for Gerd Past Home Medications Medication Directions Ordered Status [...] Mg Oral Twice A Day 09/17/15 Discontinued Trimethoprim/Sulfamethoxazole (Bactrim Ds 800/160MG Tablet) 1 Tab Tablet, 1 Each Oral Twice A Day 08/12/16 Discontinued Social History Social History Problem Response Recorded Date/Time Onset Date Status Smoking Status Never smoker 12/13/2016 12:02am Not Applicable Not Applicable Smoked in the last 12 months? No 12/13/2016 12:02am Not Applicable Not Applicable Do you dip or chew tobacco? No 12/13/2016 12:02am Not Applicable Not Applicable Approx how many cigs per day? 0 12/13/2016 12:02am Not Applicable Not Applicable Level of Dependence Low 12/13/2016 12:02am Not Applicable Not Applicable Former smoker, last day smoked? 0 12/13/2016 12:02am Not Applicable Not Applicable Smoking Status Start Date Stop Date Never smoker Hospital Discharge Instructions No hospital discharge instruction information available. Plan of Care Discharge Date 12/13/16 12:45am Disposition 01 D/C HOME Condition at Discharge Stable Instructions/Education Provided Acute Rash (GEN) Forms Provided ER Discharge Phone Call Check Prescriptions See Medication Section Referrals JARRED ARANDA DO Address: [address] [place] [address] [id number] Additional Instructions/Education See your doctor in [place] for this. You might consider seeing a calculator operator for this as well. The pill for itching can cause drowsiness, so be careful driving after taking it. Over the counter Felicia also helps itching. Reference Links Reference Text DERMATITIS OVERVIEW Dermatitis is defined as an inflammation of the skin [1]. Contact dermatitis refers to dermatitis that is caused by contact between the skin and a substance. The substance can be an allergen (a substance that provokes an allergic reaction) or an irritant (a substance that damages the skin). Irritants are responsible for about 80 percent of cases of contact dermatitis. In most cases, self-care measures and drug therapy can control the symptoms and prevent complications of contact dermatitis. Topic reviews about other skin conditions are also available. (See "Patient education: Atopic dermatitis (eczema) (Beyond the Basics)" and "Patient education: Psoriasis (Beyond the Basics)" and "Patient education: Poison juju (Beyond the Basics)".) IRRITANT CONTACT DERMATITIS Irritant contact dermatitis occurs when the skin comes in direct contact with a substance that physically, mechanically, or chemically irritates the skin, causing the normal skin barrier to be disrupted. Cause The most common causes of irritant dermatitis are products used on a daily basis, including soap, cleansers, and rubbing alcohol. People with other skin conditions, dry skin, and light-colored or "fair" skin are at greatest risk, although anyone can develop irritant dermatitis. Symptoms Mild irritants cause redness, dryness, fissures (small cracks), and itching. Strong irritants may cause swelling, oozing, tenderness, or blisters ( picture 1). The hands are commonly affected, often between the fingers. Irritant dermatitis can also affect the face, especially the thin skin of the eyelids. Diagnosis The diagnosis of irritant contact dermatitis is usually based upon a person's history and physical examination. In some cases, a patch test (applying a small amount of a substance to the skin) may be recommended to determine if the dermatitis is allergic or irritant-type. Patch testing should be done by a calculator operator or warehouser who is trained in this procedure. Treatment The goal of treatment of irritant contact dermatitis is to restore the normal skin barrier and protect the skin from future injury. Reducing exposure to known irritants is essential. In some cases, simply reducing the use of soap and using an emollient cream or ointment completely alleviates symptoms. Wearing gloves when working with irritants may help as well. In more severe cases, topical corticosteroids (steroids) may be recommended. Steroid creams and ointments are available in a variety of strengths (potencies); the least potent are available in the [place] without a prescription (eg, hydrocortisone 1% cream). More potent formulations require a prescription. Steroid treatments for contact dermatitis are most effective when applied and covered with a barrier, such as plastic wrap, a dressing (eg, Telfa), cotton gloves, or petroleum jelly. Oral steroids (eg, prednisone) may be used briefly to treat severe dermatitis, but are not recommended for long-term treatment of irritant contact dermatitis. ALLERGIC CONTACT DERMATITIS Allergic contact dermatitis occurs when the skin comes in direct contact with an allergen. This activates the body's immune system, which triggers inflammation. Allergic contact dermatitis can occur after being exposed to a new product or after using a product for months or years. Common allergens Poison juju, poison oak, and poison sumac contain an oil called urushiol, which is the most common cause of allergic contact dermatitis. Ginkgo fruit and the skin of mangos also contain urushiol and can cause allergic contact dermatitis. (See "Patient education: Poison juju (Beyond the Basics)".) Other common allergens include nickel in jewelry (picture 2), perfumes and cosmetics, components of rubber, nail maltese, and chemicals in shoes (both leather and synthetic) (picture 3). Allergic contact dermatitis can also be triggered by certain medications, including hydrocortisone cream, antibiotic creams (sample brand names: Neosporin, Bacitracin), benzocaine, and thimerosal. Laundry detergents are an uncommon cause of allergic contact dermatitis. Symptoms Symptoms include intense itching and a red raised rash. The rash may blister in severe cases. The rash is usually limited to areas that were in direct contact with the allergen, but a rash can appear in other areas of the body, if the allergen was transferred to those areas on a person's hands ( picture 4). Washing the allergen away with soap and water can usually prevent this spread. The rash typically appears within 12 to 48 hours of exposure to the allergen, although in some cases it may not appear for up to two weeks. Less commonly, the rash persists for months or years, which makes it difficult to identify the cause of the reaction. Diagnosis The diagnosis of allergic contact dermatitis is based upon a person's history and physical examination. If symptoms improve after the allergen is eliminated, this supports the diagnosis. Patch testing may be recommended in some cases and is usually performed by a calculator operator or warehouser. Treatment Allergic contact dermatitis usually resolves within two to four weeks after the allergen is eliminated, although it can take more time in some cases. Several measures can minimize symptoms during this time and help to control symptoms in people who have chronic allergic contact dermatitis. ?Whenever possible, identify and stop all exposure to the allergen. ?Oatmeal baths or soothing lotions such as calamine lotion can provide relief in mild cases. ?Topical corticosteroids (steroids) may be recommended for people with mild to moderate symptoms. Steroid creams and ointments are available in a variety of strengths (potencies); the least potent are available in the [place] without a prescription (eg, hydrocortisone 1% cream). More potent formulations require a prescription. ?For people with more bothersome symptoms, wet or damp dressings are recommended, especially when the affected area is oozing fluid and crusting. Such dressings are soothing and relieve itching, reduce redness, gently remove crusts, and prevent additional injury from scratching. A damp cotton garment (the garment is soaked with water and then wrung out) is worn over the affected area and covered with a dry garment. As an example, for an adult with allergic contact dermatitis of the legs, wet long underwear can be covered with larger dry long underwear. Adults may prefer to apply wet dressings at night. When used during the day, wet dressings should be changed every eight hours. Infants and toddlers with extensive skin involvement can wear wet pajamas covered by a dry pair of pajamas or a sleep sack. ?In people with severe dermatitis, a short course of oral steroids (eg, prednisone) may be recommended to get symptoms under control. The use of topical antihistamines (sample brand name: Benadryl) should be avoided because it can cause contact dermatitis. LATEX DERMATITIS Latex is a fluid produced by rubber trees that is processed into a variety of products, including gloves, balloons, and condoms. In some individuals, exposure to these products and others can cause a contact dermatitis that is either an irritant or allergic reaction. Less commonly, a person can develop a potentially life-threatening allergic reaction to latex. Irritant dermatitis Irritant dermatitis usually occurs on the hands of people who wear latex or other rubber gloves, but the problem is not the latex. These gloveswhether or not they contain latexoften contain chemical additives that irritate the skin. Also, the gloves trap moisture against the skin, making it softer and more vulnerable to irritants. The combination of these factors can lead to dermatitis. The symptoms of irritant rubber or latex dermatitis include redness and itching on the skin. There may also be dryness and cracking. People with irritant dermatitis often believe they have a latex allergy and then discover that their dermatitis occurs even when they use latex-free gloves. For them, treatment involves avoiding products that contain the irritants and using an emollient cream or ointment. Latex allergy A true latex allergy causes a different response than that seen with irritant dermatitis. A latex allergy can cause hives (raised, red, itchy welts on the skin), nasal and eye irritation or congestion, asthma, and even a life-threatening reaction called anaphylaxis. Also, people who have a latex allergy often also have allergic responses to fruits or vegetables that contain proteins similar to those found in latex. These foods include banana, kiwi, avocado, chestnut, papaya, potato, and tomato. (See "Latex allergy: Epidemiology, clinical manifestations, and diagnosis".) Diagnosis To diagnose a latex allergy, healthcare providers learn as much as possible about a persons responses when they have been exposed to latex and related allergens in the past. If the pattern suggests a latex allergy, they usually confirm the allergy using blood or skin tests. In the [place], the preferred way to diagnose a latex allergy is through a blood test. In other parts of the world, diagnosis can be done with skin tests using latex derivatives, but such testing products are not easily available in the [place]. Diagnosis of a latex allergy is usually done by an warehouser Treatment The primary treatment for latex allergy is to avoid all latex- containing products. Non-latex examination gloves are widely available, and use of glove liners may also be an effective approach. (See "Latex allergy: Management".) Natural membrane (sometimes called sheep skin) condoms may be used in place of latex condoms, and are effective for preventing . However, natural membrane condoms do not protect against sexually transmitted diseases such as HIV, gonorrhea, and chlamydia. (See "Patient education: Barrier methods of control (Beyond the Basics)".) People with a serious latex allergy should wear a bracelet, necklace, or similar alert tag at all times. If a reaction occurs and the person is too ill to explain their condition, this will help responders provide the proper care as quickly as possible. This measure is especially important in children. The alert tag should include a list of known allergies, as well as the name and phone number of an emergency contact. People with a latex allergy should inform their doctors, dentists, and other healthcare providers about their allergy. Some patients are advised to carry an anaphylaxis kit (containing epinephrine that can be injected under the skin) as a precautionary measure. (See "Patient education: Use of an epinephrine autoinjector (Beyond the Basics)".) WHERE TO GET MORE INFORMATION Your healthcare provider is the best source of information for questions and concerns related to your medical problem. Functional Status Query Response Date Recorded Activities of Daily Living Performs w/o Assistance December 13, 2016 12:03am Cognitive Function Intact December 13, 2016 12:03am Allergies, Adverse Reactions, Alerts Allergen Type Severity Reaction Status Last Updated Codeine Adverse Reaction Intermediate Active 12/02/14 Immunizations Query Response on File Recorded Date/Time Hx Influenza Vaccination No 12/13/16 2:52am Hx Pneumococcal Vaccination No 12/13/16 2:52am Hx Tetanus, Diphtheria Vaccination No 12/13/16 2:52am Vital Signs Acute Vital Signs Vital Response Date/Time Temperature (Fahrenheit) 98.1 degrees F (97.6 - 99.5) 12/13/2016 12:40am Temperature (Calculated Celsius) 36.39037 degrees C (36.4 - 37.5) 12/13/2016 12:40am Temperature Source Tympanic 12/13/2016 12:40am Pulse Pulse Ox Pulse Rate (adult) 74 beats per minute (60 - 90) 12/13/2016 12:40am Pulse Location Modifier Right 12/13/2016 12:40am Oxygen Saturation Respiratory Rate 18 breaths per minute (12 - 24) 12/13/2016 12:40am O2 Sat by Pulse Oximetry 99 % (90 - 100) 12/13/2016 12:40am Blood Pressure 141/89 mm Hg 12/13/2016 12:40am Blood Pressure Mean 106 mm Hg 12/13/2016 12:40am Height 5 ft 5 in 12/13/2016 12:02am Weight 177 lb 12/13/2016 12:02am Body Mass Index 29.5 kg/m^2 12/13/2016 12:02am Results Laboratory Results Test Name Result Units Flags Reference Collection Date/Time Result Date/ Time Comments White Blood Count 8.2 x10^3/uL 4.0-11.0 05/18/2016 1:05pm 05/18/2016 1: 39pm Red Blood Count 4.45 10^6/uL 3.80-5.80 05/18/2016 1:05pm 05/18/2016 1: 39pm Hemoglobin 13.3 g/dL 11.5-16.5 05/18/2016 1:05pm 05/18/2016 1:39pm Hematocrit 37.6 % 37.0-47.0 05/18/2016 1:05pm 05/18/2016 [...] CLEAR 05/18/2016 1:05pm 05/18/2016 1:52pm Urine Specific [place] 1.010 1.010-1.020 05/18/2016 1:05pm 2016 1:52pm Urine [...] 3.5 mmol/L 3.5-5.1 05/18/2016 1:05pm 05/18/2016 2:02pm Chloride Level 105 mmol/L 98-107 05/18/2016 1:05pm 05/18/2016 2:02pm Carbon Dioxide Level 22.8 mmol/L 22-30 05/18/2016 1:05pm 05/18/2016 2: 02pm Anion Gap 16.7 mEq/L H 8-16 05/18/2016 1:05pm 05/18/2016 2:02pm Blood Urea Nitrogen 11 mg/dL 7-17 05/18/2016 1:0505/18/2016 2:02pm Creatinine 0.73 mg/dl 0.52-1.04 05/18/2016 1:pm 05/18/2016 2:02pm Est Glomerular Filtrat Rate mL/min 85.09 05/18/2016 1:pm 2016 2:01pm GFR NORMALS: Stage I: GFR >90 Stage II GFR 60-89 Stage III GFR 30-60 Stage IV: GFR 15-29 Stage V: GFR <15 BUN/Creatinine Ratio 15.06 05/18/2016 1:05pm 05/18/2016 2:02pm Glucose Level 103 mg/dL 74-106 05/18/2016 1:05pm 05/18/2016 2:02pm Calculated Osmolality 290.9 mosm/kg 273-304 05/18/2016 1:pm 2016 2:02pm Calcium Level 8.7 mg/dL 8.4-10.2 05/18/2016 1:pm 05/18/2016 2:02pm Total Bilirubin 0.3 mg/dL 0.2-1.3 [...] Completed 08/12/16 EMERGENCY DEPT VISIT Completed 08/12/16 THER/PROPH/DIAG INJ SC/IM Completed 11/29/16 EMERGENCY DEPT VISIT Completed 11/29/16 INJECTION, DIAZEPAM, UP TO 5 MG Completed EMERGENCY DEPT VISIT Completed 11/29/16 Insertion of intravenous saline lock Active 05/18/16 AMBAR DIAZ APRN Cardiac event monitoring Active 05/18/16 AMBAR DIAZ APRN 12-lead electrocardiogram Completed 05/18/16 AMBAR DIAZ APRN Encounters Encounter Location Arrival/Admit Date Discharge/Depart Date Attending Provider Departed Emergency Room [facility] 12/12/16 11:45pm 12/13/16 12: 45am ARELIS ACOSTA MD Departed Emergency Room [facility] 11/29/16 2:05am 11/29/16 3: 50am LESLIE VILLEGAS NP Departed Emergency Room [facility] 08/12/16 10:45pm 08/12/16 11: 25pm RANDY HOPKINS PA-C Departed Emergency Room [facility] 05/18/16 12:57pm 05/18/16 3: 35pm AMBAR DIAZ APRN Recent Diagnosis
--- OUTSIDE RECORDS SUMMARY | 2017-05-19 10:26 | XMS REPORT ---
Author Author DARIUSZ LOCK Organization [facility] Address [address] [place] [address] Care Team Providers Care Sand Conditioner Name Role Phone DARIUSZ LOCK Unavailable PROBLEMS Type Condition ICD9-CM Code PHH42-DJ Code Onset Dates Condition Status SNOMED Code Problem Gastroesophageal reflux disease without esophagitis K21.9 Active 888325892 Problem Oropharyngeal dysphagia R13.12 Active 34099050 Problem Anxiety about health F41.8 Active 746956708 Problem Mild persistent asthma without complication J45.30 Active 179898447 Problem Skin-picking disorder F42.4 Active 052849140 Problem Influenza vaccination declined Z28.21 Active 443636822 Problem Seasonal allergic rhinitis, unspecified allergic rhinitis trigger J30.2 Active 797408342 Problem Bug bite, initial encounter W57.XXXA Active 196055937 Problem Atopic dermatitis, unspecified type L20.9 Active 82785408 Problem Cyst of left breast N60.02 Active [id number] ALLERGIES No Information ENCOUNTERS Encounter Location Date Diagnosis [facility] [address] [id number] [place] [id number] Apr, Screening cholesterol level Z13.220 ; Thyroid disorder screening Z13.29 ; Gastroesophageal reflux disease without esophagitis K21.9 and Mild persistent asthma without complication J45.30 [facility] [address] [id number] [place] [id number] Apr, Skin-picking disorder F42.4 and Viral upper respiratory tract infection J06.9 [facility] [id number] [place] [id number] Feb, Mild persistent asthma without complication J45.30 ; Influenza vaccination declined Z28.21 and Atopic dermatitis, unspecified type L20.9 [facility] [address] [id number] [place] [id number] 14 Jan, 2017 Encounter for dental examination and cleaning without abnormal findings Z01.[address] [facility] [address] [id number] [place] [id number] 14 Jan, 2017 Dental examination Z01.[address] [facility] [address] [id number] [place] [id number] 12 Jan, 2017 Allergic dermatitis L23.[address] [facility] [address] [address] [id number] [place] [id number] Jan, [facility] [address] [id number] [place] [id number] Aug, [facility] [address] [id number] [place] [id number] Aug, [facility] [address] [id number], [place] [address] Jul, [facility] [address] [id number], [place] [address] Jul, [facility] [address] [id number] [place] [id number] Jul, [facility] [address] [id number] [place] [id number] Jul, Cyst of left breast N60.02 [facility] [address] [id number] [place] [address] Jul, [facility] [address] [id number] [place] [id number] Jul, [facility] [address] [id number] [place] [id number] June, [facility] [address] [id number] [place] [id number] June, Colon cancer screening Z12.11 ; Gynecologic exam normal Z01.419 and Breast cancer screening Z12.[address] [facility] [address] [address] [id number] [place] [address] Apr, Seasonal allergic rhinitis, unspecified allergic rhinitis trigger J30.2 and Gastroesophageal reflux disease without esophagitis K21.9 [facility] [address] [id number] [place] [id number] Apr, Seasonal allergic rhinitis, unspecified allergic rhinitis trigger J30.2 and Allergic contact dermatitis, unspecified trigger L23.9 [facility] [address] [place] [address] AVE [id number] [place] [address] Apr, Insect bites, initial encounter W57.XXXA [facility] [address] [place] [address] AVE [id number] [place] [address] Dec, Gastroesophageal reflux disease without esophagitis K21.9 [facility] [address] [place] [address] AVE [id number] [place] [id number] Dec, Bug bite, initial encounter W57.XXXA [facility] TechnologyK [address] [place] [address] AV [id number] [place] [id number] Oct, Oropharyngeal dysphagia R13.12 [facility] [address] [place] [address] AVE [id number] [place] [id number] Jul, Plant dermatitis L25.5 and Itching L29.9 [facility] [address] [place] [address] AVE [id number] [place] [id number] June, Plant allergic contact dermatitis L23.7 and Urticaria L50.9 [facility] [address] [place] [address] AV [id number] [place] [address] May, Oropharyngeal dysphagia R13.12 and Anxiety about health F41.8 [facility] [address] [id number] [place] [id number] Mar, 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 [facility] [address] [id number] [place] [id number] Jan, Mild persistent asthma without complication J45.30 and Gastroesophageal reflux disease without esophagitis K21.9 [facility] [address] [place] [address] AVE [id number] [place] [address] Jul, Abscess or cellulitis of toe 681.10 [facility] [address] [id number] [place] [address] 14 May, 2014 [facility] [address] [facility] [id number], [place] [address] May, [facility] [address] [facility] [id number], [place] [address] Mar, [facility] [address] [facility] [id number] [place] [address] Mar, [facility] [address] [facility] [id number] [place] [address], [place] [address] Feb, [facility] [address] [facility] [id number], [place] [address] Feb, [facility] [address]00565100[place], [place] [address] Jan, [facility] [address] [facility] [id number], [place] [address] Jan, [facility] [address]00565100[place], [place] [address] Jan, [facility] [address]00565100[place], [place] [address] Jan, [facility] [address]00565100[place], [place] [address] Dec, [facility] [address] [facility] [id number], [place] [address] Dec, [facility] [address] [id number], [place] [address] Nov, [facility] [address] [facility] [id number], [place] [address] Nov, [facility] [address] [id number], [place] [address] Aug, [facility] [place] [facility] [address] [id number] [place] [address] 31 Aug, 2013 [facility] [place] [facility] [address] [id number] [place] [address] Aug, [facility] [place] [facility] [address] [id number] [place] [address] Aug, [facility] [place] [facility] [address] [id number] [place] [address] Aug, [facility] [place] [facility] [address] [id number] [place] [address] Aug, [facility] [place] [facility] [address] [id number] [place] [address] May, [facility] [place] [facility] [address] [id number] [place] [address] May, [facility] [place] [facility] [address] [id number] [place] [address] May, [facility] [place] [facility] [address] [id number] [place] [address] 15 May, 2013 [facility] [place] [facility] [address] [id number] [place] [address] May, [facility] [place] [facility] [address] [id number] [place] [address] May, [facility] [place] [facility] [address] [id number] [place] [address] May, [facility] [place] [facility] [address] [id number] [place] [address] May, [facility] [place] [facility] [address] [id number] [place] [address] May, [facility] [place] [facility] [address] [id number] [place] May, [facility] [place] [facility] [address] [id number] [place] [address] May, [facility] [address] [facility] [id number], [place] [address] May, [facility] [address] [facility] [id number], [place] [address] Apr, [facility] [address], [place] [address] Apr, [facility] [address] [facility] [id number], [place] [address] Apr, [facility] [address] [facility] [id number], [place] [address] Nov, [facility] [id number], [place] [address] Nov, [facility] [id number], [place] [address] Nov, [facility] [id number], [place] [address] Nov, [facility] [id number], [place] [address] Nov, [facility] [id number], [place] [address] Nov, [facility] [address]65100[place], [place] [address] Oct, [facility] [address] [id number], [place] [address] Jul, [facility] [address] [id number], [place] [address] Jul, [facility] [address]65[address], [place] [address] June, IMMUNIZATIONS No Known Immunizations SOCIAL HISTORY [...]
--- OUTSIDE RECORDS SUMMARY | 2017-05-19 10:26 | XMS REPORT ---
Author Author CECE CEE [facility] Address [address] [place] [address] Care Team Providers Care Ladle Liner Name Role Phone CECE CEE Unavailable PROBLEMS Type Condition ICD9-CM Code NBA85-ZD Code Onset Dates Condition Status SNOMED Code Problem Mild persistent asthma without complication J45.30 Active 829467440 Problem Cyst of left breast N60.02 Active 44315229787403657 Problem Seasonal allergic rhinitis, unspecified allergic rhinitis trigger J30.2 Active 469370287 Problem Anxiety about health F41.8 Active 657501419 Problem Gastroesophageal reflux disease without esophagitis K21.9 Active 998594266 Problem Bug bite, initial encounter W57.XXXA Active 370059062 Problem Oropharyngeal dysphagia R13.12 Active 92691613 ALLERGIES Substance Reaction Event Type Date Status codiene nausea Drug Allergy Apr, Active SOCIAL HISTORY Never Assessed PLAN OF CARE Activity Details Follow Up prn Reason: VITAL SIGNS Height 66 in 2016-04-26 Weight 173.7 lbs 2016-04-26 Temperature 97.5 degrees Fahrenheit 2016-04-26 Heart Rate 76 bpm 2016-04-26 Respiratory Rate 18 2016-04-26 BMI 28.03 kg/m2 2016-04-26 Blood pressure systolic 106 mmHg 2016-04-26 Blood pressure diastolic 64 mmHg 2016-04-26 MEDICATIONS Medication Instructions Dosage Frequency Start Date End Date Duration Status Triamcinolone Acetonide 0.1 % Externally Twice a day 1 application to affected area 12h 18 Apr, 2016 Active Pantoprazole Sodium 40 MG Orally Once a day 1 tablet 24h Jan, Active ProAir HFA 108 (90 Base) MCG/ACT Inhalation PRN 2 puffs as needed Jan Active Tums 200 mg calcium (500 mg) 1 Tablet by Oral route every 6 hours PRN heartburn May, Active Advair Diskus 100-50 MCG/DOSE Inhalation Twice a day 1 puff 12h June, Active Tretinoin 0.025 % Externally Once a day 1 application to affected area in the evening to face 24h Mar, Active Ibuprofen 600 MG TAKE ONE TABLET EVERY 6 HOURS WITH FOOD NEEDED FOR PAIN 6 Active Cetirizine HCl 10 mg Orally Once a day 1 tablet 24h Active RESULTS No Results PROCEDURES No Known procedures [...]
--- OUTSIDE RECORDS SUMMARY | 2017-05-19 10:26 | XMS REPORT ---
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 Problem Gastroesophageal reflux disease without esophagitis K21.9 Active Problem Dysphagia, unspecified 787.20 Active Problem Mild persistent asthma without complication J45.30 Active Problem Encounter for long-term (current) use of other medications V58.69 Active Problem DTAP TEST V06.1 Active Problem Excessive or frequent menstruation 626.2 Active Problem Esophageal reflux 530.81 Active Medications Medication Code System Code Instructions Start Date End Date Status Dosage Claritin [facility] [address]-55 10 mg Nov 14, 2013 1 tablet by Oral route 1 time per day ProAir HFA [facility] [address]-11 108 (90 Base) MCG/ACT Inhalation PRN Jan 23, 2015 2 puffs as needed Tretinoin [facility] [address]-48 0.025 % Externally Once a day Mar 17, 2015 1 application to affected area in the evening to face Pantoprazole Sodium [facility] [address]-42 40 MG Orally Once a day Jan 23, 2015 1 tablet Rolaids [facility] [address]-46 550-110 MG Orally Six times a day 2 tablets as needed Advair Diskus [facility] [address]-84 100-50 MCG/DOSE Inhalation Twice a day June 22, 2012 1 puff Procedures Procedure Coding System Code Date Office Visit, Est Pt., Level 3 CPT-4 61958 Mar 17, 2015 Vital Signs Date/Time: Mar 17, 2015 Temperature 97.2 F Weight 158.2 lbs Height 66 in BMI 25.53 Index Blood Pressure Diastolic 72 mmHg Blood Pressure Systolic 110 mmHg Cardiac Monitoring Heart Rate 92 bpm Results No Known Results Summary Purpose [employer] Submission
--- OUTSIDE RECORDS SUMMARY | 2017-05-19 10:26 | XMS REPORT ---
Author Author CAESAR MOLINA [facility] Address [address] [place] [address] Care Team Providers Care Traveling Sales Representative Name Role Phone CAESAR MOLINA Unavailable PROBLEMS Type Condition ICD9-CM Code HND45-DX Code Onset Dates Condition Status SNOMED Code Problem Gastroesophageal reflux disease without esophagitis K21.9 Active 397830802 Problem Oropharyngeal dysphagia R13.12 Active 23121941 Problem Anxiety about health F41.8 Active 798813126 Problem Mild persistent asthma without complication J45.30 Active 286733951 Problem Skin-picking disorder F42.4 Active 696346170 Problem Influenza vaccination declined Z28.21 Active 605974999 Problem Seasonal allergic rhinitis, unspecified allergic rhinitis trigger J30.2 Active 446340128 Problem Bug bite, initial encounter W57.XXXA Active 421850201 Problem Atopic dermatitis, unspecified type L20.9 Active 87108890 Problem Cyst of left breast N60.02 Active [id number] ALLERGIES No Information ENCOUNTERS Encounter Location Date Diagnosis [address] [id number] [id number] Apr, [address] [id number][place] [id number] Apr, Screening cholesterol level Z13.220 ; Thyroid disorder screening Z13.29 ; Gastroesophageal reflux disease without esophagitis K21.9 and Mild persistent asthma without complication J45.[address] [id number][place] [id number] Apr, Skin-picking disorder F42.4 and Viral upper respiratory tract infection J06.[address] [id number][place] [address] Feb, Mild persistent asthma without complication J45.30 ; Influenza vaccination declined Z28.21 and Atopic dermatitis, unspecified type L20.[address] [facility] [address] [id number] [place] [id number] 14 Jan, 2017 Encounter for dental examination and cleaning without abnormal findings Z01.[address] [facility] [address] [id number] [place] [id number] 14 Jan, 2017 Dental examination Z01.[address] [facility] [address] [id number] [place] [id number] 12 Jan, 2017 Allergic dermatitis L23.[address] [facility] [address] [id number] [place] [id number] 11 Jan, [address] [facility] [address] [id number] [place] [id number] Aug, [facility] [address] [address] [id number] [facility] [place] [id number] Aug, [facility] [address] [id number] [address] Jul, [facility] [address] [facility] [id number], [place] [address] Jul, [facility] [address] [address] [id number][place] [id number] Jul, [facility] [address] [id number][place] [id number] Jul, Cyst of left breast N60.[address] [facility] [address] [id number] [place] [id number] Jul, [facility] [address] [address] [id number] [place] [id number] Jul, [facility] [address] [address] [id number] [place] [id number] June, [facility] [address] [address] [id number] [place] [address] June, Colon cancer screening Z12.11 ; Gynecologic exam normal Z01.419 and Breast cancer screening Z12.39 [facility] [address] [place] [address] AVE [id number], [place] [id number] Apr, Seasonal allergic rhinitis, unspecified allergic rhinitis trigger J30.2 and Gastroesophageal reflux disease without esophagitis K21.9 [facility] [address] [id number][place] [id number] Apr, Seasonal allergic rhinitis, unspecified allergic rhinitis trigger J30.2 and Allergic contact dermatitis, unspecified trigger L23.9 [facility] [address] [id number][place] [address] Apr, Insect bites, initial encounter W57.XXXA [facility] [address] AV[id number] [place] [id number] Dec, Gastroesophageal reflux disease without esophagitis K21.9 [facility] [address] [id number] [address] Dec, Bug bite, initial encounter W57.XXXA [facility] [address] [id number], [place] [id number] Oct, Oropharyngeal dysphagia R13.12 [facility] [address] [place] [address] AV [id number], [place] [address] Jul, Plant dermatitis L25.5 and Itching L29.9 [facility] [address] [id number], [place] [id number] June, Plant allergic contact dermatitis L23.7 and Urticaria L50.9 [facility] [address] [id number], [place] [address] May, Oropharyngeal dysphagia R13.12 and Anxiety about health F41.8 [facility] [address] [address] [place] [address] AV [id number], [place] [address] Mar, 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 [facility] [address] [address] [place] [address] AV [id number], [place] [address] Jan, Mild persistent asthma without complication J45.30 and Gastroesophageal reflux disease without esophagitis K21.9 [facility] [address] [facility] [address] [id number], [place] [address] Jul, Abscess or cellulitis of toe 681.10 [facility] [address] [facility] [id number], [place] [address] 14 May, 2014 [facility] [address] [facility] [id number], [place] [address] May, [facility] [address] [facility] [id number], [place] [address] Mar, [facility] [address] [facility] [id number], [place] [address] Mar, [facility] [address] [id number], [place] [address] Feb, [facility] [address] [id number], [place] [address] Feb, [facility] [address] [facility] [id number], [place] [address] Jan, [facility] [address] [id number], [place] [address] Jan, [facility] [address] [id number], [place] [address] Jan, [facility] [address] [facility] [id number], [place] [address] Jan, [facility] [address] [facility] [id number], [place] [address] Dec, [facility] [address] [facility] [id number], [place] [address] Dec, [facility] [address] [facility] [id number], [place] [address] Nov, [facility] [address] [facility] [id number], [place] [address] Nov, [facility] [place] [facility] [address] [id number] [place] [address] Aug, 2013 [facility] [address] [id number] [place] [address] Aug, [facility] [place] [facility] [address] [id number] [place] [address] Aug, [facility] [address] [id number] [place] [address] Aug, [facility] [place] [facility] [address] [id number] [place] [address] Aug, [facility] [address] [id number] [place] [address] Aug, [facility] [address] [id number] [place] [address] May, [facility] [place] [facility] [address] [id number] [place] [address] May, [facility] [address] [id number] [place] [address] May, [facility] [place] [facility] [address] [id number] [place] [address] May, [facility] [address] [id number] [place] [address] May, [facility] [place] [facility] [address] [id number] [place] [address] May, [facility] [place] [facility] [address] [id number] [place] [address] May, [facility] [place] [facility] [address] [id number] [place] [address] May, [facility] [place] [facility] [address] [id number] [place] [address] May, [facility] [place] [facility] [address] [id number] [place] [address] May, [facility] [address] [id number] [place] [address] May, [facility] [address] [id number] [place] May, [facility] [address] [id number] [place] [address] Apr, [facility] [address] [id number] [place] [address] Apr, [facility] [address] [id number] [place] [address] Apr, [facility] [address] [id number] [place] [address] Nov, [facility] [address] [facility] [id number] [place] [address] Nov, [facility] [address] [facility] [id number][place] [address] Nov, [facility] [address] [facility] [id number], [place] [address] Nov, [facility] [address] [facility] [id number], [place] [address] Nov, [facility] [address] [facility] [id number], [place] [address] Nov, [facility] [address] [facility] [id number], [place] [address] Oct, [facility] [address] [facility] [id number] Jul, [facility] [address] [facility] [id number][place] [address] Jul, [facility] [address] [facility] [id number][place] [address] June, IMMUNIZATIONS No Known Immunizations SOCIAL HISTORY Never Assessed REASON FOR VISIT US results/letter PLAN OF CARE VITAL SIGNS MEDICATIONS Unknown [...]
--- OUTSIDE RECORDS SUMMARY | 2017-05-19 10:27 | XMS REPORT ---
Author CAESAR Moser [facility] e[employer] Address Unknown Phone Unavailable Care Team Providers Care Him Analyst Name Role Phone CAESAR MOLINA CP Unavailable Allergies, Adverse Reactions, Alerts Substance Reaction Event Type codiene nausea Drug Allergy Problems Problem Type Condition Code Onset Dates Condition Status Assessment Anxiety about health F41.8 Active Problem Anxiety about health F41.8 Active Problem Mild persistent asthma without complication J45.30 Active Problem Oropharyngeal dysphagia R13.12 Active Problem DTAP TEST V06.1 Active Assessment Oropharyngeal dysphagia R13.12 Active Problem Gastroesophageal reflux disease without esophagitis K21.9 Active Problem Esophageal reflux 530.81 Active Medications Medication Code System Code Instructions Start Date End Date Status Dosage Advair Diskus [facility] [address]-47 100-50 MCG/DOSE Inhalation Twice a day June 22, 2012 1 puff Pantoprazole Sodium [facility] [address]-67 40 MG Orally Once a day Jan 23, 2015 1 tablet Hydrocortisone [facility] [address]-13 0.5 % Externally not defined Tretinoin [facility] [address]-11 0.025 % Externally Once a day Mar 17, 2015 1 application to affected area in the evening to face ProAir HFA [facility] [address]-44 108 (90 Base) MCG/ACT Inhalation PRN Jan 23, 2015 2 puffs as needed Rolaids [facility] [address]-99 550-110 MG Orally Six times a day 2 tablets as needed Erythromycin [facility] [address]-03 333 MG Orally not defined Ibuprofen [facility] 93265028582 600 MG TAKE ONE TABLET EVERY 6 HOURS WITH FOOD NEEDED FOR PAIN Claritin [facility] [address]-83 10 mg Nov 14, 2013 1 tablet by Oral route 1 time per day Procedures Procedure Coding System Code Date Office Visit, Est Pt., Level 3 CPT-4 15754 May 31, 2015 Vital Signs Date/Time: May 31, 2015 Temperature 97.6 F Weight 154.8 lbs Height 66 in BMI 24.98 Index Blood Pressure Diastolic 78 mmHg Blood Pressure Systolic 104 mmHg Cardiac Monitoring Heart Rate 81 bpm Results No Known Results Summary Purpose eClinicalWorks Submission
--- OUTSIDE RECORDS SUMMARY | 2017-05-19 10:27 | XMS REPORT | Continuity of Care Document ---
Author Author [facility] Address Unknown Phone Unavailable Allergies Active Description Code Type Severity Reaction Onset Reported/Identified Relationship to Patient Clinical Status Yes codeine [id number] Drug Allergy Moderate N/A 12/02/2014 Medications There is no data. Problems Date Dx Coded Attending Type Code Diagnosis Diagnosed By 06/22/2012 300.00 anxiety 06/22/2012 493.90 ASTHMA MILD PERSISTENT 06/22/2012 V58.69 taking high- risk medication for a long time 06/22/2012 300.00 anxiety 06/22/2012 493.90 ASTHMA MILD PERSISTENT 06/22/2012 V58.69 taking high- risk medication for a long time 06/22/2012 CHRISTINE VALDES DO 300.00 anxiety 06/22/2012 CHRISTINE VALDES DO 493.90 ASTHMA MILD PERSISTENT 06/22/2012 CHRISTINE VALDES DO V58.69 taking high-risk medication for a long time 06/22/2012 JILLIAN MNOTOYA APRN A 300.00 anxiety 06/22/2012 HAMIDA MONTOYA APRNIDI A 493.90 ASTHMA MILD PERSISTENT 06/22/2012 HAMIDA MONTOYA APRNIDI A V58.69 taking high-risk medication for a long time 06/22/2012 ORLIN MOLINA APRNSON L 300.00 anxiety 06/22/2012 EATJENNIFER ARNOLD CAESAR L 493.90 ASTHMA MILD PERSISTENT 06/22/2012 EATON CLAYTON CAESAR L V58.69 taking high-risk medication for a long time 06/22/2012 DARIUSZ LOCK APRN N 300.00 anxiety 06/22/2012 DARIUSZ LOCK APRN N 493.90 ASTHMA MILD PERSISTENT 06/22/2012 DARIUSZ LOCK APRN N V58.69 taking high-risk medication for a long time 06/22/2012 DARIUSZ LOCK APRN N 300.00 anxiety 06/22/2012 VERGARA CASHERO COMPOSITION ROLL MAKER AND CUTTER, DARIUSZ N 493.90 ASTHMA MILD PERSISTENT 06/22/2012 VERGARA MARKERO COMPOSITION ROLL MAKER [employer] CUTTER, DARIUSZ N V58.69 taking high-risk medication for a long time 06/22/2012 VALDES DO, CHRISTINE K 300.00 anxiety 06/22/2012 VALDES DO, CHRISTINE K 493.90 ASTHMA MILD PERSISTENT 06/22/2012 VALDES DO, CHRISTINE K V58.69 taking high-risk medication for a long time 06/22/2012 VERGARA KENNETH [employer] MAKER [employer] CUTTER, DARIUSZ N 300.00 anxiety 06/22/2012 VERGARA MARKERO COMPOSITION RO[employer] MAKER [employer] CUTTER, DARIUSZ N 493.90 ASTHMA MILD PERSISTENT 06/22/2012 VERGARA MARKERO COM[employer]ITION [employer] MAKER [employer] CUTTER, ADRIUSZ N V58.69 taking high-risk medication for a long time 06/22/2012 EATON COM[employer]ITION [employer] MAKER [employer] CUTTER, CAESAR L 300.00 anxiety 06/22/2012 EATON COMPOSITION RO[employer] MAKER [employer] CUTTER, CAESAR L 493.90 ASTHMA MILD PERSISTENT 06/22/2012 EATON COMPOSITION [employer] MAKER [employer] CUTTER, CAESAR L V58.69 taking high-risk medication for a long time 06/22/2012 EATON COMPOSITION RO[employer] MAKER [employer] CUTTER, CAESAR L 300.00 anxiety 06/22/2012 EATON COMPOSITION RO[employer] MAKER [employer] CUTTER, CAESAR L 493.90 ASTHMA MILD PERSISTENT 06/22/2012 EATON COM[employer]ITION [employer]KER [employer] CUTTER, CAESAR L V58.69 taking high-risk medication for a long time 10/19/2012 530.81 GERD 10/19/2012 692.6 POISON MIMI 10/19/2012 VALDES DO, CHRISTINE K 530.81 ESOPHAGEAL REFLUX 10/19/2012 VALDES DO, CHRISTINE K 692.6 POISON MIMI 10/19/2012 LINDSAY [employer]ITION RO[employer] MAKER [employer] CUTTER, JILLIAN A 530.81 ESOPHAGEAL REFLUX 10/19/2012 LINDSAY COMPOSITION RO[employer] MAKER [employer] CUTTER, JILLIAN A 692.6 POISON MIMI 10/19/2012 EATON COMPOSITION RO[employer] MAKER [employer] CUTTER, CAESAR L 530.81 ESOPHAGEAL REFLUX 10/19/2012 EATON COMPOSITION ROLL MAKER AND CUTTER, CAESAR L 692.6 POISON MIMI 10/19/2012 VERGARA CASHKEVIN COMPOSITION ROLL MAKER AND CUTTER, DARIUSZ N 530.81 ESOPHAGEAL REFLUX 10/19/2012 VERGARA CASHERO COMPOSITION RO[employer] MAKER AND CUTTER, DARIUSZ N 692.6 POISON MIMI 10/19/2012 VERGARA CASHKEVIN COMPOSITION ROLL MAKER AND CUTTER, DARIUSZ N 530.81 ESOPHAGEAL REFLUX 10/19/2012 VERGARA CASHERO [employer]ITION [employer] MAKER [employer] CUTTER DARIUSZ N 692.6 POISON MIMI 10/19/2012 VALDES DO, CHRISTINE K 530.81 ESOPHAGEAL REFLUX 10/19/2012 VALDES DO, CHRISTINE K 692.6 POISON MIMI 10/19/2012 VERGARA CASHERO [employer] MAKER [employer] CUTTER, DARIUSZ N 530.81 ESOPHAGEAL REFLUX 10/19/2012 VERGARA CASHERO COM[employer]ITION [employer] MAKER [employer] CUTTER, DARIUSZ N 692.6 POISON MIMI 10/19/2012 EATON COMPOSITION RO[employer] MAKER [employer] CUTTER, CAESAR L 530.81 ESOPHAGEAL REFLUX 10/19/2012 EATON COMPOSITION RO[employer] MAKER [employer] CUTTER, CAESAR L 692.6 POISON MIMI 10/19/2012 EATON COMPOSITION RO[employer] MAKER [employer] CUTTER, CAESAR L 530.81 ESOPHAGEAL REFLUX 10/19/2012 EATON COMPOSITION RO[employer] MAKER [employer] CUTTER, CAESAR L 692.6 POISON MIMI 11/18/2012 VALDES DO, CHRISTINE K 626.2 excessive bleeding during period (menorrhagia) 11/18/2012 VALDES DO, CHRISTINE K 787.3 belching 11/18/2012 VALDES DO, CHRISTINE K V77.0 visit for: screening exam thyroid disorders 11/18/2012 LINDSAY COM[employer] MAKER [employer] CUTTER, JILLIAN A 626.2 excessive bleeding during period (menorrhagia) 11/18/2012 LINDSAY COMPOSITION RO[employer] MAKER AND CUTTER, JILLIAN A 787.3 belching 11/18/2012 LINDSAY COMPOSITION ROLL MAKER AND CUTTER, JILLIAN A V77.0 visit for: screening exam thyroid disorders 11/18/2012 EATON COMPOSITION ROLL MAKER [employer] CUTTER, CAESAR L 626.2 excessive bleeding during period (menorrhagia) 11/18/2012 EATON COMPOSITION RO[employer] MAKER [employer] CUTTER, CAESAR L 787.3 belching 11/18/2012 EATON COMPOSITION RO[employer] MAKER AND CUTTER, CAESAR L V77.0 visit for: screening exam thyroid disorders 11/18/2012 VERGARA CASHERO COMPOSITION RO[employer] MAKER AND CUTTER, DARIUSZ N 626.2 excessive bleeding during period (menorrhagia) 11/18/2012 VERGARA CASHERO COM[employer]ITION RO[employer] MAKER [employer] CUTTER, DARIUSZ N 787.3 belching 11/18/2012 VERGARA CASHERO COMPOSITION RO[employer] MAKER AND CUTTER, DARIUSZ N V77.0 visit for: screening exam thyroid disorders 11/18/2012 VERGARA CASHKEVIN COMPOSITION ROLL MAKER AND CUTTER, DARIUSZ N 626.2 excessive bleeding during period (menorrhagia) 11/18/2012 VERGARA CASHERO COMPOSITION ROLL MAKER AND CUTTER, DARIUSZ N 787.3 belching 11/18/2012 VERGARA CASHKEVIN COMPOSITION ROLL MAKER AND CUTTER DARIUSZ N V77.0 visit for: screening exam thyroid disorders 11/18/2012 VALDES DO, CHRISTINE K 626.2 excessive bleeding during period (menorrhagia) 11/18/2012 VALDES DO, CHRISTINE K 787.3 belching 11/18/2012 VALDES DO, CHRISTINE K V77.0 visit for: screening exam thyroid disorders 11/18/2012 VERGARA CASHERO COM[employer] MAKER [employer] CUTTER, DARIUSZ N 626.2 excessive bleeding during period (menorrhagia) 11/18/2012 VERGARA CASHERO COMPOSITION ROLL MAKER AND CUTTER, DARIUSZ N 787.3 belching 11/18/2012 VERGARA CASHERO COMPOSITION RO[employer] MAKER AND CUTTER, DARIUSZ N V77.0 visit for: screening exam thyroid disorders 11/18/2012 EATON COMPOSITION ROLL MAKER [employer] CUTTER, CAESAR L 626.2 excessive bleeding during period (menorrhagia) 11/18/2012 EATON COMPOSITION ROLL MAKER AND CUTTER, CAESAR L 787.3 belching 11/18/2012 EATON COMPOSITION ROLL MAKER AND CUTTER, CAESAR L V77.0 visit for: screening exam thyroid disorders 11/18/2012 EATON COMPOSITION ROLL MAKER AND CUTTER, CAESAR L 626.2 excessive bleeding during period (menorrhagia) 11/18/2012 EATON COMPOSITION RO[employer] MAKER AND CUTTER, CAESAR L 787.3 belching 11/18/2012 EATON COMPOSITION ROLL MAKER AND CUTTER, CAESAR L V77.0 visit for: screening exam thyroid disorders 05/04/2013 LINDSAY APRN, JILLIAN A V72.31 WOOL WASHER EXAM, ROUTINE 05/04/2013 LINDSAY ARNOLD, JILLIAN A V73.81 HPV SCREENING 05/04/2013 LINDSAY ARNOLD, JILLIAN A V76.10 BREAST CANCER SCREENING 05/04/2013 LINDSAY APRN, JILLIAN A V76.2 CERVICAL CANCER SCREENING (PAP SMEAR) 05/04/2013 EATON COMPOSITION ROLL MAKER AND CUTTER, CAESAR L V72.31 WOOL WASHER EXAM, ROUTINE 05/04/2013 EATON COMPOSITION ROLL MAKER AND CUTTER, CAESAR L V73.81 HPV SCREENING 05/04/2013 EATON COMPOSITION ROLL MAKER AND CUTTER, CAESAR L V76.10 BREAST CANCER SCREENING 05/04/2013 EATON COMPOSITION ROLL MAKER AND CUTTER, CAESAR L V76.2 CERVICAL CANCER SCREENING (PAP SMEAR) 05/04/2013 JAI COOPER COMPOSITION ROLL MAKER AND CUTTER, DARIUSZ N V72.31 WOOL WASHER EXAM, ROUTINE 05/04/2013 JAI COOPER COMPOSITION ROLL MAKER AND CUTTER, DARIUSZ N V73.81 HPV SCREENING 05/04/2013 JAI COOPER APRTimoteo DARIUSZ N V76.10 BREAST CANCER SCREENING 05/04/2013 JAI COOPER APRREVA MahmoodCY N V76.2 CERVICAL CANCER SCREENING (PAP SMEAR) 05/04/2013 JAI COOPER APRTimoteo DARIUSZ N V72.31 WOOL WASHER EXAM, ROUTINE 05/04/2013 JAI COOPER APRTimoteo DARIUSZ N V73.81 HPV SCREENING 05/04/2013 JAI COOPER APRDARIUSZ Mahmood N V76.10 BREAST CANCER SCREENING 05/04/2013 JAI COOPER APRTimoteo DARIUSZ N V76.2 CERVICAL CANCER SCREENING (PAP SMEAR) 05/04/2013 VALDES DO, CHRISTINE K V72.31 WOOL WASHER EXAM, ROUTINE 05/04/2013 VALDES DO, CHRISTINE K V73.81 HPV SCREENING 05/04/2013 VALDES DO, CHRISTINE K V76.10 BREAST CANCER SCREENING 05/04/2013 VALDES DO, CHRISTINE K V76.2 CERVICAL CANCER SCREENING (PAP SMEAR) 05/04/2013 JAI COOPER APRREVA MahmoodCY N V72.31 WOOL WASHER EXAM, ROUTINE 05/04/2013 JAI COOPER APRTimoteo DARIUSZ N V73.81 HPV SCREENING 05/04/2013 JAI COOPER APRREVA MahmoodCY N V76.10 BREAST CANCER SCREENING 05/04/2013 JAI COOPER APRDARIUSZ Mahmood N V76.2 CERVICAL CANCER SCREENING (PAP SMEAR) 05/04/2013 EATON CLAYTON CAESAR L V72.31 WOOL WASHER EXAM, ROUTINE 05/04/2013 EATON COMPOSITION ROLL MAKER AND CUTTER, CAESAR L V73.81 HPV SCREENING 05/04/2013 EATON COMPOSITION ROLL MAKER AND CUTTER, CAESAR L V76.10 BREAST CANCER SCREENING 05/04/2013 EATON COMPOSITION ROLL MAKER AND CUTTER, CAESAR L V76.2 CERVICAL CANCER SCREENING (PAP SMEAR) 05/04/2013 EATON COMPOSITION ROLL MAKER AND CUTTER, CAESAR L V72.31 WOOL WASHER EXAM, ROUTINE 05/04/2013 EATON COMPOSITION ROLL MAKER AND CUTTER, CAESAR L V73.81 HPV SCREENING 05/04/2013 EATON COMPOSITION ROLL MAKER AND CUTTER, CAESAR L V76.10 BREAST CANCER SCREENING 05/04/2013 EATON COMPOSITION ROLL MAKER AND CUTTER, CAESAR L V76.2 CERVICAL CANCER SCREENING (PAP SMEAR) 05/14/2013 TRACY ARNOLD CAESAR L 787.20 DYSPHAGIA UNSPECIFIED 05/14/2013 JAI COOPER APRN, DARIUSZ N 787.20 DYSPHAGIA UNSPECIFIED 05/14/2013 REVA LOCK APRNCY N 787.20 DYSPHAGIA UNSPECIFIED 05/14/2013 VALDES DO, CHRISTINE K 787.20 DYSPHAGIA UNSPECIFIED 05/14/2013 JAI COOPER APRN, DARIUSZ N 787.20 DYSPHAGIA UNSPECIFIED 05/14/2013 EATON COMPOSITION ROLL MAKER AND CUTTER, CAESAR L 787.20 DYSPHAGIA UNSPECIFIED 05/14/2013 EATON COMPOSITION ROLL MAKER AND CUTTER, CAESAR L 787.20 DYSPHAGIA UNSPECIFIED 08/10/2013 JAI COOPER APRN, DARIUSZ N 478.19 OTHER DISEASES OF NASAL CAVITY AND SINUSES 08/10/2013 REVA LOCK APRNCY N 784.1 THROAT PAIN 08/10/2013 JAI COOPER APRN, DARIUSZ N 786.2 COUGH 08/10/2013 REVA LOCK APRNCY N 478.19 OTHER DISEASES OF NASAL CAVITY AND SINUSES 08/10/2013 REVA LOCK APRNCY N 784.1 THROAT PAIN 08/10/2013 JAI COOPER APRN, DARIUSZ N 786.2 COUGH 08/10/2013 VALDES DO, CHRISTINE K 478.19 OTHER DISEASES OF NASAL CAVITY AND SINUSES 08/10/2013 VALDES DO, CHRISTINE K 784.1 THROAT PAIN 08/10/2013 VALDES DO, CHRISTINE K 786.2 COUGH 08/10/2013 JAI COOPER APRN, DARIUSZ N 478.19 OTHER DISEASES OF NASAL CAVITY AND SINUSES 08/10/2013 JAI COOPRE APRN, DARIUSZ N 784.1 THROAT PAIN 08/10/2013 JAI COOPER APRN, DARIUSZ N 786.2 COUGH 08/10/2013 EATON COMPOSITION ROLL MAKER AND CUTTER, CAESAR L 478.19 OTHER DISEASES OF NASAL CAVITY AND SINUSES 08/10/2013 EATON COMPOSITION ROLL MAKER AND CUTTER, CAESAR L 784.1 THROAT PAIN 08/10/2013 EATON COMPOSITION ROLL MAKER AND CUTTER, CAESAR L 786.2 COUGH 08/10/2013 EATON COMPOSITION ROLL MAKER AND CUTTER, CAESAR L 478.19 OTHER DISEASES OF NASAL CAVITY AND SINUSES 08/10/2013 EATON COMPOSITION ROLL MAKER AND CUTTER, CAESAR L 784.1 THROAT PAIN 08/10/2013 EATON COMPOSITION ROLL MAKER AND CUTTER, CAESAR L 786.2 COUGH 09/08/2013 VALDES DO, CHRISTINE K V06.1 TDAP DX 09/08/2013 DARIUSZ LOCK APRN N V06.1 TDAP DX 09/08/2013 EATORLIN RODRIGUEZ APRNSON L V06.1 TDAP DX 09/08/2013 EATON COMPOSITION ROLL MAKER AND CUTTER, CAESAR L V06.1 TDAP DX 11/14/2013 DARIUSZ LOCK APRN N 691.8 OTHER ATOPIC DERMATITIS AND RELATED CONDITIONS 11/14/2013 EATON COMPOSITION ROLL MAKER AND CUTTER, CAESAR L 691.8 OTHER ATOPIC DERMATITIS AND RELATED CONDITIONS 11/14/2013 EATON COMPOSITION ROLL MAKER AND CUTTER, CAESAR L 691.8 OTHER ATOPIC DERMATITIS AND RELATED CONDITIONS 12/20/2013 EATON COMPOSITION ROLL MAKER AND CUTTER, CAESAR L 339.21 ACUTE POSTRAUMATIC HEADACHE 12/20/2013 EATON COMPOSITION ROLL MAKER AND CUTTER, CAESAR L 920 CONTUSION OF FACE SCALP AND NECK EXCEPT EYE(S) 12/20/2013 EATON COMPOSITION ROLL MAKER AND CUTTER, CAESAR L E000.8 OTHER EXTERNAL CAUSE STATUS 12/20/2013 EATON COMPOSITION ROLL MAKER AND CUTTER, CAESAR L 339.21 ACUTE POSTRAUMATIC HEADACHE 12/20/2013 EATON COMPOSITION ROLL MAKER AND CUTTER, CAESAR L 920 CONTUSION OF FACE SCALP AND NECK EXCEPT EYE(S) 12/20/2013 EATON COMPOSITION ROLL MAKER AND CUTTER, CAESAR L E000.8 OTHER EXTERNAL CAUSE STATUS 01/18/2014 EATON COMPOSITION ROLL MAKER AND CUTTER, CAESAR L 706.1 OTHER ACNE 09/17/2015 Other L30.9 DERMATITIS , UNSPECIFIED 05/18/2016 AMBAR DIAZ APRN Other K21.9 GASTRO-ESOPHAGEAL REFLUX DISEASE WITHOUT ESOPHAGITIS 05/18/2016 AMBAR DIAZ APRN Other N93.8 OTHER SPECIFIED ABNORMAL UTERINE AND VAGINAL BLEEDING 05/18/2016 AMBAR DIAZ APRN Other R07.9 CHEST PAIN, UNSPECIFIED Procedures Code Description [place] [address] URINE DRUG SCREEN (IN-HOUSE ) 06/22/2012 88409 THERAPUTIC INJ SQ/IM 10/19/2012 J2930 SOLUMEDROL INJ 10/19/2012 31205 MAMMOGRAM, SCREENING 05/04/2013 Q0091 PAP SMEAR OBTAIN SMEAR 05/04/2013 21620 PAP SMEAR 05/06/2013 85562 BARIUM SWALLOW XRAY 05/14/2013 54391 STREP A (IN-HOUSE) 08/10/2013 32835 XRAY FACIAL BONES 3 VIEWS 12/20/2013 13620 XRAY SKULL LESS THAN 4 VIEWS 12/20/2013 Results Test Result Range [facility] - 05/01/17 12:04 GLUCOSE 90 mg/dL 65-99 UREA NITROGEN (BUN) 8 mg/dL 7-25 CREATININE 0.86 mg/dL 0.50-1.10 eGFR NON-AFR. EGYPTIAN 79 mL/min/1.73m2 > OR=60 eGFR 92 mL/min/1.73m2 > OR=60 BUN/CREATININE RATIO NOT APPLICABLE (calc) 6-22 SODIUM 143 mmol/L 135-146 POTASSIUM 4.2 mmol/L 3.5-5.3 CHLORIDE 104 mmol/L 98-110 CARBON DIOXIDE 20 mmol/L 20-31 CALCIUM 9.4 mg/dL 8.6-10.2 PROTEIN, TOTAL 7.2 g/dL 6.1-8.1 ALBUMIN 4.4 g/dL 3.6-5.1 GLOBULIN 2.8 g/dL (calc) 1.9-3.7 ALBUMIN/GLOBULIN RATIO 1.6 (calc) 1.0-2.5 BILIRUBIN, TOTAL 0.4 mg/dL 0.2-1.2 ALKALINE PHOSPHATASE 83 U/L 33-115 AST 16 U/L 10-35 ALT 15 U/L 6-29 THYROID ANALYZER - 05/01/17 12:04 TSH 1.40 mIU/L NRG Encounters ACCT No. Visit Date/Time Discharge Status Pt. Type Provider Facility Loc./Unit Complaint [id number] 01/18/2014 16:53:00 01/18/2014 23:59:59 CLS Outpatient CAESAR MOLINA APRN [id number] 12/20/2013 11:29:00 12/20/2013 23:59:59 CLS Outpatient CAESAR MOLINA APRN [id number] 11/14/2013 08:09:00 11/14/2013 23:59:59 CLS Outpatient DARIUSZ LCOK APRN [id number] 09/08/2013 16:14:00 09/08/2013 23:59:59 CLS Outpatient CHRISTINE VALDES DO [id number] 08/22/2013 09:52:00 08/22/2013 23:59:59 CLS Outpatient DARIUSZ LOCK APRN [id number] 08/10/2013 12:58:00 08/10/2013 23:59:59 CLS Outpatient DARIUSZ LOCK APRN [id number] 05/14/2013 09:42:00 05/14/2013 23:59:59 CLS Outpatient ORLIN MOLINA APRNOLEG Cruz [id number] 05/04/2013 12:29:00 05/04/2013 23:59:59 CLS Outpatient HAMIDA MONTOYA APRNMARY Thompson [id number] 11/18/2012 10:11:00 11/18/2012 23:59:59 CLS Outpatient CHRISTINE VALDES DO [id number] 10/19/2012 08:29:00 Document Registration [id number] 06/22/2012 16:46:00 Document Registration [id number] 05/01/2017 12:00:00 05/01/2017 23:59:59 CLS Outpatient ORLIN MOLINA APRNOLEG Cruz [facility] [id number] 05/01/2017 12:00:00 Document Registration [id number] 11/29/2016 02:05:00 11/29/2016 03:50:00 DIS Emergency LESLIE VILLEGAS NP [facility] SKIN BURNING/SOB [id number] 08/12/2016 22:45:00 08/12/2016 23:25:00 DIS Emergency RANDY HOPKINS PA-C [facility] RASH [id number] 05/18/2016 12:57:00 05/18/2016 15:35:00 DIS Emergency AMBAR DIAZ APRN [facility] vaginal bleeding, Chest Pain [id number] 12/12/2016 23:43:00 Document Registration [id number] 09/17/2015 16:55:00 Document Registration [id number] 09/29/2016 20:08:08 09/29/2016 23:59:59 CLS Outpatient Yan Nuñez
--- OUTSIDE RECORDS SUMMARY | 2017-05-19 10:27 | XMS REPORT ---
Author Author ALIYAH MILTON Organization [facility] Address [address] [place] [address] Care Team Providers Care Head Of Academic Technology Name Role Phone ALIYAH MILTON Unavailable PROBLEMS Type Condition ICD9-CM Code [id number] Code Onset Dates Condition Status SNOMED Code Problem Mild persistent asthma without complication J45.30 Active 947707093 Problem Cyst of left breast N60.02 Active [id number] Problem Seasonal allergic rhinitis, unspecified allergic rhinitis trigger J30.2 Active 489441363 Problem Anxiety about health F41.8 Active 850596534 Problem Gastroesophageal reflux disease without esophagitis K21.9 Active 428752078 Problem Bug bite, initial encounter W57.XXXA Active 264678553 Problem Oropharyngeal dysphagia R13.12 Active 67362369 ALLERGIES No Information SOCIAL HISTORY Never Assessed PLAN OF CARE VITAL SIGNS MEDICATIONS Medication Instructions Dosage Frequency Start Date End Date Duration Status Cetirizine HCl 10 mg Orally Once a day 1 tablet 24h Apr, 0 days Active Pantoprazole Sodium 40 mg Orally Once a day 1 tablet 24h Jan, 0 days Active Fluticasone Propionate 50 MCG/ACT Nasally Once a day 1 spray in each nostril 24h Apr, 0 days Active RESULTS No Results PROCEDURES No Known [...]
--- OUTSIDE RECORDS SUMMARY | 2017-05-19 10:27 | XMS REPORT ---
Author Author CAESAR MOLINA Organization [facility] Address [address] [place] [address] Care Team Providers Care Convention Manager Name Role Phone CAESAR MOLINA Unavailable PROBLEMS Type Condition ICD9-CM Code ZSP33-AI Code Onset Dates Condition Status SNOMED Code Problem Mild persistent asthma without complication J45.30 Active 059455559 Problem Cyst of left breast N60.02 Active 04317662465326290 Problem Seasonal allergic rhinitis, unspecified allergic rhinitis trigger J30.2 Active 372460481 Problem Anxiety about health F41.8 Active 569541996 Problem Gastroesophageal reflux disease without esophagitis K21.9 Active 382753484 Problem Bug bite, initial encounter W57.XXXA Active 674588045 Problem Oropharyngeal dysphagia R13.12 Active 06261089 ALLERGIES No Information SOCIAL HISTORY Never Assessed [...]
[2017-05-19] MEDS ORDERED: FERR325T18 (10:47)
[2017-05-19] MEDS ORDERED: RT-ALBUINH (10:47)
--- NOTE | 2017-05-19 11:07 | ED General ---
General Chief Complaint: Head/Cervical Problems Stated Complaint: BURNING IN NECK,BURNING IN LEFT ARM Nursing Triage Note: TO ROOM C/O BURNING IN NECK FOR 1 MONTH. YESTERDAY MOVED TO BURNING IN L ARM. Nursing Sepsis Screen: No Definite Risk Source of Information: Patient Exam Limitations: No Limitations History of Present Illness Date Seen by Provider: May 19, 2017 Time Seen by Provider: 11:05 Initial Comments To ER with reports of the pain in the back of her neck between her shoulder blades that began 1 week ago (instead of 1 month as she told RN) after turning her neck while doing dishes. Today the pain moved to the left scapula as a sharp burning pain. Pain is not worsened by movement Does not radiate to arm. She also states that once a month she has to make herself vomit because food gets stuck. She's had an EGD by Dr. Guerin from gastroenterology and CT scan without findings. The symptoms however have been present for many years but should likely be evaluated further today. Timing/Duration: 1-2 Days, Intermittent Severity: Moderate Associated Systoms: Nausea/Vomiting Allergies and Home Medications Allergies Coded Allergies: No Known Drug Allergies (Unverified , 05/19/17) Patient Home Medication List Home Medication List Reviewed: Yes Review of Systems Constitutional: see HPI EENTM: see HPI Respiratory: no symptoms reported Cardiovascular: no symptoms reported Genitourinary: no symptoms reported Musculoskeletal: no symptoms reported Skin: no symptoms reported Psychiatric/Neurological: No Symptoms Reported Hematologic/Lymphatic: No Symptoms Reported Immunological/Allergic: no symptoms reported Past Npqbvri-Fdakjk-Syihpg Hx Patient Social History Alcohol Use: Denies Use Recreational Drug Use: No Smoking Status: Never a Smoker 2nd Hand Smoke Exposure: No Recent Foreign Travel: No Contact w/Someone Who Travel: No Recent Infectious Disease Expo: No Past Medical History Surgeries: No Respiratory: Yes Asthma Cardiac: No Neurological: No Genitourinary: No Gastrointestinal: No Musculoskeletal: No Endocrine: No HEENT: No Cancer: No Psychosocial: No Integumentary: No Physical Exam Vital Signs Vital Signs - First Documented 05/19/17 10:25 Temp 97.9 Pulse 72 Resp 18 B/P (MAP) 140/85 (103) Pulse Ox 94 O2 Delivery Room Air Capillary Refill : Less Than 3 Seconds General Appearance: No Apparent Distress, WD/WN Eyes: Bilateral Eye Normal Inspection, Bilateral Eye PERRL, Bilateral Eye EOMI HEENT: PERRL/EOMI, TMs Normal Neck: Full Range of Motion, Normal Inspection Respiratory: Normal Breath Sounds, No Accessory Muscle Use, No Respiratory Distress Cardiovascular: Regular Rate, Rhythm, Normal Peripheral Pulses Gastrointestinal: Normal Bowel Sounds, Non Tender, Soft Extremity: Normal Capillary Refill, Normal Inspection Neurologic/Psychiatric: Alert, Oriented x3 Skin: Normal Color, Warm/Dry Progress/Results/Core Measures Suspected Sepsis Recent Fever Within 48 Hours: No Infection Criteria Present: None New/Unexplained Altered Menta: No Sepsis Screen: No Definite Risk Sepsis Diagnosis: SIRS Temperature:97.9 Pulse: 72 Respiratory Rate: 18 Blood Pressure 140 /85 Mean: 103 Results/Orders My Orders Orders - BRIELLE CHAVEZ APRN Cbc With Automated Diff (05/19/17 11:04) Comprehensive Metabolic Panel (05/19/17 11:04) Saline Lock/Iv-Start (05/19/17 11:04) Ketorolac Injection (Toradol Injection) (05/19/17 11:15) Vital Signs/I&O 05/19/17 10:25 Temp 97.9 Pulse 72 Resp 18 B/P (MAP) 140/85 (103) Pulse Ox 94 O2 Delivery Room Air Capillary Refill : Less Than 3 Seconds Blood Pressure Mean: 103 Departure Impression Primary Impression: Neck pain Disposition: 01 HOME, SELF-CARE Condition: Stable Departure-Patient Inst. Decision time for Depature: 11:07 Referrals: [facility] (PCP) Primary Care Physician CAESAR MOLINA (Family) Primary Care Physician Patient Instructions: NO INSTRUCTIONS GIVEN Add. Discharge Instructions: 1. Follow-up with your doctor this week for recheck 2.return to ER for any concerns. All discharge instructions reviewed with patient and/or family. Voiced understanding. Scripts Omeprazole (Omeprazole) 40 Mg Capsule. 40 MG PO DAILY, #14 CAP Prov: BRIELLE CHAVEZ APRN 05/19/17 Cyclobenzaprine HCl (Cyclobenzaprine HCl) 5 Mg Tablet 5 MG PO TID Y for PAIN-MODERATE TO SEVERE, #20 TAB Prov: BRIELLE CHAVEZ APRN 05/19/17 Naproxen (Naprosyn) 500 Mg Tablet 500 MG PO BID Y for PAIN-SEVERE, #30 TAB Prov: BRIELLE CHAVEZ APRN 05/19/17 BRIELLE CHAVEZ APRN May 19, 2017 11:07
[2017-05-19] MEDS ORDERED: OMEP40CA36 PO (11:09)
[2017-05-19] MEDS ORDERED: NAPR-1071 PO (11:09)
[2017-05-19] MEDS ORDERED: CYCL5TAB PO (11:09)
[2017-05-19 11:11] LABS: BASOPHILS % (AUTO) 0 % (0-10); EOSINOPHILS # (AUTO) 0.2 10^3/uL (0.0-0.3); EOSINOPHILS % (AUTO) 2 % (0-10); HEMATOCRIT 34 % (35-52); HEMOGLOBIN 10.6 G/DL (11.5-16.0); LYMPHOCYTES # (AUTO) 1.3 X 10^3 (1.0-4.0); LYMPHOCYTES % (AUTO) 19 % (12-44); MEAN CORPUSCULAR HEMOGLOBIN 23 PG (25-34); MEAN CORPUSCULAR HGB CONC 31 G/DL (32-36); MEAN CORPUSCULAR VOLUME 74 FL (80-99); MONOCYTES # (AUTO) 0.5 X 10^3 (0.0-1.0); MONOCYTES % (AUTO) 7 % (0-12); NEUTROPHILS # (AUTO) 5.1 X 10^3 (1.8-7.8); NEUTROPHILS % (AUTO) 72 % (42-75); PLATELET COUNT 239 10^3/uL (130-400); RED BLOOD COUNT 4.65 10^6/uL (4.35-5.85); RED CELL DISTRIBUTION WIDTH 16.9 % (10.0-14.5)
[2017-05-19 11:14] LABS: CALCIUM 9.4 MG/DL (8.5-10.1); CHLORIDE 109 MMOL/L (98-107); POTASSIUM 4.6 MMOL/L (3.6-5.0); SODIUM 136 MMOL/L (135-145)
[2017-05-19] MEDS ORDERED: KETOROLAC 30 MG/ML VIAL IVP ONE (11:15)
[2017-05-19 12:04] LABS: ALANINE AMINOTRANSFERASE 18 U/L (0-55); ALBUMIN 4.1 GM/DL (3.2-4.5); ALKALINE PHOSPHATASE 79 U/L (40-136); BILIRUBIN,TOTAL 0.3 MG/DL (0.1-1.0); BUN/CREATININE RATIO 9; CARBON DIOXIDE 18 MMOL/L (21-32); CREATININE SERUM 0.67 MG/DL (0.60-1.30); GFR ESTIMATED > 60; GLUCOSE 105 MG/DL (70-105); TOTAL PROTEIN 7.7 GM/DL (6.4-8.2)
[2017-05-19 12:14] VITALS: BP 161/108
== END 2017-05-19 12:13 | disposition home or self-care (01) ==
LOC: EDUNIT# 10:16 → ER 10:20
DX: M54.2 Cervicalgia (principal); J45.909 Unspecified asthma, uncomplicated
CPT/HCPCS: 36415; 80053; 85025; 96374